=== PATIENT | male | born 1960 | race Caucasian/White ===

== ENCOUNTER 2022-01-03 15:17 | Inpatient (IN) | payer OTHER, SELFPAY ==
--- NOTE | ~2022-01-03 | XR_ITS ---
EXAMINATION: XR CHEST CLINICAL INFORMATION: Stroke COMPARISON: None TECHNIQUE: Frontal view of the chest was obtained. FINDINGS: Prominent right hilum of uncertain etiology. Mild opacity in the right mid to lower lung zone may represent an area of infiltrate. Left lung is clear. There is no failure or effusion here. The cardiac silhouette is within normal limits. XR/XR chest 1V IMPRESSION: Mild right basilar opacity and prominent right hilum. Etiology indeterminate. Area of infiltrate would need to be considered. Follow-up films are recommended. Consider PA and lateral films to further evaluate at this time. Otherwise short-term follow-up in 4-6 weeks PA and lateral films recommended
--- NOTE | ~2022-01-03 | CT_ITS ---
EXAMINATION: CT HEAD WITHOUT CONTRAST (STROKE PROTOCOL) CLINICAL INFORMATION: Stroke protocol. COMPARISON: None TECHNIQUE: Contiguous axial imaging was performed from the skull base to vertex without intravenous administration of contrast. This CT examination was performed using dose optimization techniques as appropriate, variously including the following: *Automated exposure control *Adjustment of mA and/or kV according to patient size (this includes techniques or standardized protocols for targeted exams where dose is matched to indication/reason for exam; i.e. extremities or head) *Use of iterative reconstruction technique DLP: 784 mGy-cm FINDINGS: No midline shift. There is no mass effect. There is no hemorrhage. There is atrophy here. Scattered areas of white matter ischemic change. Appears moderate. No extra-axial collection. Generous ventricles. View of the bone windows demonstrates sinus disease. CT/CT head for stroke IMPRESSION: No acute intracranial pathology. Moderate white matter ischemic changes. Atrophy. This critical result was discussed with Frankie Calderón at 3:50 PM hours on 01/03/2022. It was ascertained that the content and urgency of the report was understood at the time of direct communication.
--- NOTE | ~2022-01-03 | XR_ITS ---
EXAMINATION: XR CHEST CLINICAL INFORMATION: Question pneumonia COMPARISON: January 03, 2022 TECHNIQUE: 2 views of the chest were obtained. FINDINGS: No significant abnormality is noted involving the heart, lungs, mediastinum, bony thorax or soft tissues. XR/XR chest 2V IMPRESSION: No acute disease. Previously noted density was likely related to atelectasis with small lung volumes.
--- NOTE | 2022-01-03 15:25 | ECG_ITS ---
Test Reason : weakness Blood Pressure : / mmHG Vent. Rate : 089 BPM Atrial Rate : 089 BPM P-R Int : 148 ms QRS Dur : 082 ms QT Int : 408 ms P-R-T Axes : 077 014 033 degrees QTc Int : 496 ms Sinus rhythm with Premature atrial complexes Prolonged QT Abnormal ECG No previous ECGs available Referred By: Vesta David Electronically Signed By:Nathanael Pederson
[2022-01-03 15:30] LABS: Prothrombin Time Whole Bld POC 16.8 sec (11.1-13.5); ~PT, ~INR - Anti Coag Clinic 1.4 (0.9-1.1)
[2022-01-03 15:31] LABS: Glucose, Whole Blood 147 mg/dL (60-115)
--- NOTE | 2022-01-03 15:38 | ED_ITS ---
HPI - Neuro Symptoms/Deficit General Chief Complaint: Stroke Stated Complaint: STROKE ALERT,LKWT 1445, L SIDE DROOP/WEAK,+COVID Time Seen by Provider: 01/03/22 15:24 Source: EMS and RN notes reviewed Mode of arrival: EMS Limitations: physical limitation (Baseline dementia) History of Present Illness HPI Narrative: 61-year-old male came in from [facility] for evaluation of stroke. Patient with history of dementia his mental baseline is awake but disoriented had a history of CVA with aphasia, noticed by nursing staff patient with left hemiparesis and left facial weakness last was seen normal was 2:45 before arrival to the emergency department. On arrival patient is mute do not follow commands, unable to obtain history from the patient, can not perform neuro exam or NIH score on the patient. Past medical history is significant for hyperlipidemia, AFib on anticoagulation, CVA with aphasia. Patient recently diagnosed with COVID as per EMS patient found to be 89% at room air at the prison improved with 2 L of nasal cannula oxygen. Related Data Allergies Allergy/AdvReac Type Severity Reaction Status Date / Time No Known Allergies Allergy Verified 01/03/22 16:13 Review of Systems Review of Systems: Yes Unobtainable due to mental condition PMFSH Social History Social History Advance Directives: No Advance Directives Information Provided: No Physical Exam Vital Signs: Vital Signs: Last Vital Signs Pulse 98 01/03/22 15:43 Resp 22 H 01/03/22 15:43 BP 153/95 H 01/03/22 15:43 Pulse Ox 95 01/03/22 15:43 O2 Del Method 01/03/22 15:43 Oxygen Flow Rate 4 01/03/22 15:43 BMI result Body Mass Index 29.5 Appearance: Alert. Disoriented Head: Normal external exam. Normocephalic. Atraumatic. Eyes: PERRLA. EOMI. Conjunctiva and sclera normal. Eyelids normal. ENT: TM's Normal. Pharynx normal. Uvula midline. Moist mucous membranes. No trismus noted. No drooling noted. No muffled voice noted. Neck: Normal inspection. Neck supple. FROM. No adenopathy. Thyroid Normal. No meningeal signs. No neck mass noted. CVS: Normal heart rate and rhythm. Heart sound normal. No murmurs noted. Pulses normal throughout. Respiratory: No respiratory distress. Painless inspiration. Breath sounds normal. No wheezes/rales/rhonchi noted. Chest nontender. No accessory muscle usage noted or decreased air movement noted. Abdomen: Soft and nontender. Bowel sounds normal in all 4 quadrants. No distention noted. No organomegaly noted. No visible injury noted. Back: No CVA tenderness. Full range of motion noted. Skin: Skin warm and dry. Normal skin color. Normal skin turgor. No rashes/lesions/lacerations noted. Extremities: No lower extremity edema. Extremities exhibit normal range of motion. Extremities nontender. Neuro: Patient cannot follow commands. 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 Cavazos he also agree on the plan. Patient has fever and hypoxia recently diagnosed with COVID at the prison, clinical concern of aspiration pneumonia, patient was given Levaquin, sepsis workup in process. Case signed out to Dr. Hodge. MDM - Neuro Symptoms/Deficit Lab Data Result diagrams: 01/03/22 15:50 01/03/22 15:50 Labs: Lab Results 01/03/22 01/03/22 01/03/22 Range/Units 15:25 15:26 15:27 WBC (4.8-10.8) X10*3/uL RBC (4.60-5.80) X10*6/uL Hgb (14.0-18.0) g/dl Hct (42.0-52.0) % MCV (80.0-98.0) fL MCH (27.0-33.0) pg MCHC (31.0-36.0) g/dl RDW (11.0-16.0) % Plt Count (160-400) X10*3/uL MPV (9.4-12.4) fL Immature Gran % (Auto) (0.0-0.4) % Neut % (Auto) (45-73) % Lymph % (Auto) (20-40) % [place] % (Auto) (2-11) % Eos % (Auto) (0-4) % Baso % (Auto) (0-2) % Lymph # (Auto) (1.2-4.9) X10*3/uL [place] # (Auto) (0.1-1.2) X10*3/uL Eos # (Auto) (0.0-0.4) X10*3/uL Baso # (Auto) (0.0-0.2) X10*3/uL Abs Immat Gran (auto) (0.00-0.03) X10*3/uL Absolute Neuts (auto) (2.0-8.3) x10*3/uL Absolute Nucleated RBC (0.0-0.012) X10*3/uL Nucleated RBC % (auto) (0.0-0.2) /100WBC PT 17.1 H (10.0-13.1) SEC Whole Blood PT 16.8 H (11.1-13.5) sec INR 1.5 H (0.9-1.1) Whole Blood INR 1.4 H (0.9-1.1) APTT 26.9 (24.1-38.0) SEC POC Glucose 147 H (60-115) mg/dL 01/03/22 Range/Units 15:50 WBC 13.9 H (4.8-10.8) X10*3/uL RBC 5.94 H (4.60-5.80) X10*6/uL Hgb 18.1 H (14.0-18.0) g/dl Hct 54.4 H (42.0-52.0) % MCV 91.6 (80.0-98.0) fL MCH 30.5 (27.0-33.0) pg MCHC 33.3 (31.0-36.0) g/dl RDW 13.1 (11.0-16.0) % Plt Count 211 (160-400) X10*3/uL MPV 11.8 (9.4-12.4) fL Immature Gran % (Auto) 0.4 (0.0-0.4) % Neut % (Auto) 74.5 H (45-73) % Lymph % (Auto) 14.4 L (20-40) % [place] % (Auto) 10.3 (2-11) % Eos % (Auto) 0.0 (0-4) % Baso % (Auto) 0.4 (0-2) % Lymph # (Auto) 2.0 (1.2-4.9) X10*3/uL [place] # (Auto) 1.4 H (0.1-1.2) X10*3/uL Eos # (Auto) 0.0 (0.0-0.4) X10*3/uL Baso # (Auto) 0.1 (0.0-0.2) X10*3/uL Abs Immat Gran (auto) 0.05 H (0.00-0.03) X10*3/uL Absolute Neuts (auto) 10.3 H (2.0-8.3) x10*3/uL Absolute Nucleated RBC 0.000 (0.0-0.012) X10*3/uL Nucleated RBC % (auto) 0.0 (0.0-0.2) /100WBC PT (10.0-13.1) SEC Whole Blood PT (11.1-13.5) sec INR (0.9-1.1) Whole Blood INR (0.9-1.1) APTT (24.1-38.0) SEC POC Glucose (60-115) mg/dL Discharge Plan Discharge Clinical Impression: Cerebrovascular accident, COVID-19 virus infection, Pneumonia, Hypoxia Patient Disposition: Still a Patient
[2022-01-03 15:43] VITALS: BP 137/85; BP 153/95; PULSE 101; PULSE 98; RESP 22; O2SAT 90; O2SAT 95; BMI 29.5
[2022-01-03 15:56] LABS: MANUAL DIFF FLAG NO
[2022-01-03 15:58] LABS: Basophils Absolute Auto 0.1 X10*3/uL (0.0-0.2); Basophils Percent Auto 0.4 % (0-2); Hematocrit 54.4 % (42.0-52.0); Hemoglobin 18.1 g/dl (14.0-18.0); Imm Gran Abs Auto 0.05 X10*3/uL (0.00-0.03); Imm Gran Pct Auto 0.4 % (0.0-0.4); Lymphocytes Percent Auto 14.4 % (20-40); Mean Corpuscular HGB Conc 33.3 g/dl (31.0-36.0); Mean Corpuscular Hemoglobin 30.5 pg (27.0-33.0); Mean Corpuscular Volume 91.6 fL (80.0-98.0); Mean Platelet Volume 11.8 fL (9.4-12.4); Monocytes Absolute Auto 1.4 X10*3/uL (0.1-1.2); Monocytes Percent Auto 10.3 % (2-11); Neutrophils Absolute Auto 10.3 x10*3/uL (2.0-8.3); Neutrophils Percent Auto 74.5 % (45-73); Platelet Count 211 X10*3/uL (160-400); Red Blood Count 5.94 X10*6/uL (4.60-5.80); Red Cell Distribution Width 13.1 % (11.0-16.0); White Blood Count 13.9 X10*3/uL (4.8-10.8)
[2022-01-03] MEDS: 0.9 % Sodium Chloride 1,000 ML 999 ML IV (16:01)
[2022-01-03 16:08] LABS: INTERNATIONAL NORM RATIO 1.5 (0.9-1.1); Prothrombin Time 17.1 SEC (10.0-13.1)
[2022-01-03 16:11] LABS: Partial Thromboplastin Time 26.9 SEC (24.1-38.0)
[2022-01-03 16:13] LABS: Lactic Acid 1.1 mmol/L (0.5-2.0)
--- NOTE | 2022-01-03 16:15 | PC.NURSE ---
pt arousable to name, dementia at baseline, COVID +, febrile, lnw 1445, SNF reporting left sided facial droop/arm weakness, CT on arrival, 20 G L forearm, labs drawn, cultures drawn, thermal molder applied, ivf started.
[2022-01-03] MEDS: levoFLOXacin/D5W 750 MG/150 ML PIGGYBACK 100 MG IV (16:24)
[2022-01-03 16:32] LABS: Troponin-I High Sensitivity 179.1 ng/L (<3.5-35.0)
[2022-01-03 16:40] LABS: COVID-19 Test Positive (Negative); IDNOW Serial# 16C4AD1C
[2022-01-03 16:45] LABS: Stroke Lab Use COMPLETE
--- NOTE | 2022-01-03 16:57 | P.HPHOSP_ITS ---
History of Present Illness Date of Service: 01/03/22 Chief Complaint: left sided weakness and left facial droop 61 year year old male from [facility] with history of dementia type unknown, history of stroke with aphasia, AFIB on eliquis, HLD..He was brought from SNF to be evaluated for acute change in status notably left sided hemiparesis and left facial droop. In ED was not followin command and no meaningful could be obtained, when I saw him around 445 he was reportedly more alert and via translator interpreter was able to respond to to I am fine when asked how he's doing, he couldn't say his name or where he was or to offer any additional history. CT head no acute stroke, no tpa d/t antiocoaglation with eliquis. Of note he has been diagnosed with covid within a week and not on any specific treatment, his O2 sat was reported to be 89% and improved with oxygen. CXR show possible pneumonia, WBC is 13.9, troponin is 179, covid is positive Review of Systems 2 Review of Systems: Yes Unobtainable due to mental status [facility] Medical History (Updated 01/04/22 @ 12:00 by Geo Cavazos MD) Chronic a-fib Dementia History of stroke HLD (hyperlipidemia) Pertinent family history: Not available Social History Advance Directives: No Advance Directives Information Provided: No Meds Allergies Allergy/AdvReac Type Severity Reaction Status Date / Time No Known Allergies Allergy Verified 01/03/22 16:13 Active Medications: Current Medications Levofloxacin (Levaquin) 750 mg in 150 mls @ 100 mls/hr IV ONCE ONE Stop: 01/03/22 17:30 Last Admin: 01/03/22 16:24 Dose: 100 mls/hr Pharmacy Consult (Consult Rx Perform Med Rec) 1 each MISCELLANE ONCE PRN PRN Reason: Consult order Home Medications Medication Instructions Recorded Confirmed Last Taken Type allopurinol 100 mg tablet 100 mg PO DAILY 01/03/22 01/03/22 Unknown History amlodipine 10 mg tablet 10 mg PO DAILY 01/03/22 01/03/22 Unknown History apixaban 5 mg tablet (Eliquis) 5 mg PO BID 01/03/22 01/03/22 Unknown History atorvastatin 80 mg tablet 80 mg PO BEDTIME 01/03/22 01/03/22 Unknown History diclofenac sodium 1 % topical gel 4 g topical BID PRN Pain 01/03/22 01/03/22 Unknown History divalproex 125 mg tablet,delayed 625 mg PO BID 01/03/22 01/03/22 Unknown History release (Depakote) docusate sodium 100 mg capsule 100 mg PO BID PRN Constipation 01/03/22 01/03/22 Unknown History (Colace) fluoxetine 10 mg capsule 10 mg PO DAILY 01/03/22 01/03/22 Unknown History furosemide 40 mg tablet (Lasix) 40 mg PO DAILY 01/03/22 01/03/22 Unknown History iddoqtdssdx-[id number] C-Mn 500 1 cap PO DAILY 01/03/22 01/03/22 Unknown History mg-400 mg capsule (Glucosamine Chondroitin Maximum Strength) lisinopril 5 mg tablet 5 mg PO BEDTIME 01/03/22 01/03/22 Unknown History multivitamin 1 tab PO DAILY 01/03/22 01/03/22 Unknown History trazodone 50 mg tablet 12.5 mg PO BID 01/03/22 01/03/22 Unknown History Physical Exam Vital Signs and Narrative: Vital Signs: Last Vital Signs Pulse 98 01/03/22 15:43 Resp 22 H 01/03/22 15:43 BP 153/95 H 01/03/22 15:43 Pulse Ox 95 01/03/22 15:43 O2 Del Method 01/03/22 15:43 Oxygen Flow Rate 4 01/03/22 15:43 BMI result Body Mass Index 29.5 Const: Other: Constitutional: Alert, in no distress, mostly nonverbal Mental Status: unable to assess orientation Eyes: Pupils are equal, round and reactive to light. Ear, Nose and Throat: Oropharynx clear, mucous membranes moist. Ears and nose without Respiratory: Clear to auscultation. No wheezing, rales or rhonchi. Cardiovascular: S1 S2 regular. No murmurs, rubs or gallops. Gastrointestinal: Abdomen soft, non-tender, non-distended. Normal bowel sounds.? Neurologic:limitted as not able follow direction, no facial assymetry, able to hold up both arms against gravity Skin: No rashes or lesions.? Musculoskeletal: No cyanosis or clubbing. Psychiatric: flat Results Labs CBC and Chem 7: 01/03/22 15:50 01/04/22 06:00 Labs: Laboratory Results - last 24 hr 01/03/22 01/03/22 01/03/22 15:25 15:26 15:27 MCV MCH MCHC RDW Plt Count MPV Immature Gran % (Auto) Neut % (Auto) Lymph % (Auto) [place] % (Auto) Eos % (Auto) Baso % (Auto) Lymph # (Auto) [place] # (Auto) Eos # (Auto) Baso # (Auto) Abs Immat Gran (auto) Absolute Neuts (auto) Absolute Nucleated RBC Nucleated RBC % (auto) PT 17.1 H Whole Blood PT 16.8 H INR 1.5 H Whole Blood INR 1.4 H APTT 26.9 POC Glucose 147 H Lactic Acid Troponin I High Sens COVID-19 ([place]) COVID-[employer] Com 01/03/22 01/03/22 01/03/22 15:50 15:50 15:55 MCV 91.6 MCH 30.5 MCHC 33.3 RDW 13.1 Plt Count 211 MPV 11.8 Immature Gran % (Auto) 0.4 Neut % (Auto) 74.5 H Lymph % (Auto) 14.4 L [place] % (Auto) 10.3 Eos % (Auto) 0.0 Baso % (Auto) 0.4 Lymph # (Auto) 2.0 [place] # (Auto) 1.4 H Eos # (Auto) 0.0 Baso # (Auto) 0.1 Abs Immat Gran (auto) 0.05 H Absolute Neuts (auto) 10.3 H Absolute Nucleated RBC 0.000 Nucleated RBC % (auto) 0.0 PT Whole Blood PT INR Whole Blood INR APTT POC Glucose Lactic Acid 1.1 Troponin I High Sens 179.1 H* COVID-19 ([place]) COVID-19 [employer] Com 01/03/22 Unknown MCV MCH MCHC RDW Plt Count MPV Immature Gran % (Auto) Neut % (Auto) Lymph % (Auto) [place] % (Auto) Eos % (Auto) Baso % (Auto) Lymph # (Auto) [place] # (Auto) Eos # (Auto) Baso # (Auto) Abs Immat Gran (auto) Absolute Neuts (auto) Absolute Nucleated RBC Nucleated RBC % (auto) PT Whole Blood PT INR Whole Blood INR APTT POC Glucose Lactic Acid Troponin I High Sens COVID-19 ([place]) Positive A COVID-19 Clin Com See Note Imaging Radiologist's Impressions: Impressions Head CT 01/03/22 15:29 IMPRESSION: No acute intracranial pathology. Moderate white matter ischemic changes. Atrophy. This critical result was discussed with Frankie Calderón at 3:50 PM hours on 01/03/2022. It was ascertained that the content and urgency of the report was understood at the time of direct communication. Chest X-Ray 01/03/22 16:15 IMPRESSION: Mild right basilar opacity and prominent right hilum. Etiology indeterminate. Area of infiltrate would need to be considered. Follow-up films are recommended. Consider PA and lateral films to further evaluate at this time. Otherwise short-term follow-up in 4-6 weeks PA and lateral films recommended Assessment and Plan (1) COVID-19 virus infection: Status: Acute (2) Hypoxia: Status: Acute (3) Pneumonia: Status: Acute (4) Cerebrovascular accident: Status: Acute Plan 61 year year old male from [facility] with history of dementia, history of stroke with aphasia, AFIB on eliquis, HLD..He was brought from SNF to be evaluated for acute change in status notably left sided hemiparesis and left facial droop. +Covid with hypoxia, and covid pneumonia. #Left sided weaknes, facial weakness--possible stroke not yet manifested on CT -continue medical management with Eliquis, ASA, statin -PT/OT, speech to see hime #Covid + with hypoxia.. -O2 -Dexamethasone -Remdesevir if LFTs ok -Ceftriaxone for pneumonia #HypERnatremia--d/t dehydration lack of access to water -D5 and follow level #elevated troponin--likely from acute illness, no chest pa -Repeat level and if trending up cardiology consult #Polycythemia due to hemoconcentration -IVF #HLD-stain #HTN--BP med after med rec Quality Stroke Does the patient have a stroke diagnosis?: Yes Reason for No Anti-thrombotic by Day Two: N/A - Med Ordered VTE Prior VTE?: No VTE Risk Level:: Medical - low VTE Device Contraindication: Treatment Not Indicated VTE Drug Contraindication: N/A - Med Ordered
[2022-01-03 17:09] LABS: Anion Gap 12 (12-20); Blood Urea Nitrogen 29 mg/dL (9-16); Calcium 8.1 mg/dL (8.4-10.2); Carbon Dioxide 26 mmol/L (22-29); Chloride 117 mmol/L (96-108); Creatinine Clr Calc Pharmacy 69.9; Estimated Glomerular Filt Rate > 60; Glucose Random 127 mg/dL (60-115); Potassium 3.4 mmol/L (3.3-5.1); Sodium 152 mmol/L (135-145)
--- NOTE | 2022-01-03 17:35 | PC.NURSE ---
Addendum entered by Jonna Erwin 01/03/22 21:25: message sent to provider re 101.3 temp @ 1820 Original Note: EKG obtained, hospitalist in room w pt, pt appears more alert, endorses speaking norwegian only. buffer chrome in room w pt - pt denies pain, endorses hunger, following basic commands. attempted to place temp sensing marcos - unable to pass marcos. provider notified.
[2022-01-03 17:49] LABS: Alanine Aminotransferase 33 U/L (0-40); Albumin Level 3.6 g/dL (3.5-5.0); Alkaline Phosphatase 53 U/L (39-117); Aspartate Amino Transferase 32 U/L (5-37); Bilirubin Direct 0.5 mg/dL (0.0-0.5); Total Protein 6.8 g/dL (6.5-8.0)
[2022-01-03 18:00] VITALS: PULSE 90; RESP 16; TEMP 38.5; O2SAT 92
--- NOTE | 2022-01-03 18:02 | PHA.MEDREC ---
Pharmacy Consult ? Medication Reconciliation Pharmacy has completed the medication reconciliation. LIST FROM [facility]
[2022-01-03 19:22] LABS: Troponin-I High Sensitivity 211.5 ng/L (<3.5-35.0)
[2022-01-03 20:00] VITALS: BP 149/86; PULSE 85; RESP 18; TEMP 38.3; O2SAT 94
[2022-01-03] MEDS: dexAMETHasone sod phosphate 4 MG/ML VIAL 6 MG IVPUSH (21:11)
[2022-01-03] MEDS: Remdesivir 200 MG in 0.9 % Sodium Chloride 210 ML 105 MG IV (21:13)
--- NOTE | 2022-01-03 21:28 | PC.NURSE ---
pt medicated - late due to emergent pt in ED. vss - pt remains hypertensive, temp 100.9, provider notified.
--- NOTE | 2022-01-03 21:29 | PC.NURSE ---
pt incontinent of urine, pt cleaned.
[2022-01-03 21:52] VITALS: BP 149/86; PULSE 84; RESP 16; TEMP 36.9; O2SAT 96
[2022-01-03 23:35] LABS: Glucose, Whole Blood 137 mg/dL (60-115)
[2022-01-04] VITALS (9 sets, daily range): BP systolic 92–153; BP diastolic 49–92; PULSE 59–78; RESP 12–19; TEMP 36.4–37.7; O2SAT 94–98
[2022-01-04] MEDS: Dextrose 5 % 1,000 ML 125 ML IVCONT ×3 (02:37→18:16)
--- NOTE | 2022-01-04 02:39 | PC.NURSE ---
D5 started at 125ml/hr. pt sleeping, RR even and unlabored, O2 @ 95% on 2L via nasal cannula, vss.
[2022-01-04 06:48] LABS: Anion Gap 13 (12-20); Blood Urea Nitrogen 30 mg/dL (9-16); Calcium 8.7 mg/dL (8.4-10.2); Carbon Dioxide 27 mmol/L (22-29); Chloride 115 mmol/L (96-108); Cholesterol 115 mg/dL; Creatinine Clr Calc Pharmacy 79.8; Estimated Glomerular Filt Rate > 60; Glucose Random 197 mg/dL (60-115); HDL Cholesterol 22 mg/dL; LDL Cholesterol Calculated 76 mg/dl; Potassium 3.8 mmol/L (3.3-5.1); Sodium 151 mmol/L (135-145); Triglycerides 85 mg/dL
--- NOTE | 2022-01-04 08:57 | PC.NURSE ---
DR. GUILLORY AT BEDSIDE WITH TV HOST, PT AWARE OF PLAN CARE. PT HAD A EXTRA LARGE LOOSE/WATERY STOOL. PHYSICAL THERAPY AT BEDSIDE, PT AWARE OF PLAN OF CARE.
--- NOTE | 2022-01-04 09:00 | PC.NURSE ---
OCCUPATIONAL THERAPY AT BEDSIDE ALSO WITH PHYSICAL THERAPY, PT AWARE OF PLAN OF CARE
[2022-01-04 09:14] LABS: Glucose, Whole Blood 162 mg/dL (60-115)
[2022-01-04] MEDS: dexAMETHasone sod phosphate 4 MG/ML VIAL 6 MG IVPUSH (09:29)
[2022-01-04] MEDS: Insulin Lispro 100 UNIT/ML 3 ML VIAL SUBCUT ×3 (09:29→22:04)
--- NOTE | 2022-01-04 09:40 | PC.NURSE ---
pt is a/o, follows verbal commands. l side/arm weakness noted earlier with pt/ot. lungs sound - rul (cta) all other lobes slightly diminished. heart sounds regular, abd - soft and non-tender. bs + x 4 quads.
--- NOTE | 2022-01-04 10:00 | PC.NURSE ---
Dr. Vickie Willett . at bedside . patient aware of plan of care .
--- NOTE | 2022-01-04 11:57 | P.CNNE_ITS ---
History of Present Illness Data of Consult Service Date: 01/04/22 Primary Care Provider: Unknown Physician HPI Reason for consult: Change in mental status 61 years old man with underlying diagnosis of dementia and aphasia resident of a assisted brought to hospital with change in mental status. He was unable to provide any meaningful history. Apparently with change in mental status left- sided weakness was noted. There was no documentation or witnessing of any seizure-like episode. Initially he was febrile with possible lung infiltrate. Also his serum sodium was 151. Review of Systems Review of Systems: Review of system could not be done with [facility] Past Medical History Medical History (Updated 01/04/22 @ 12:00 by Geo Cavazos MD) Chronic a-fib Dementia History of stroke HLD (hyperlipidemia) Social History Social History Advance Directives: No Advance Directives Information Provided: No Meds Allergies Allergy/AdvReac Type Severity Reaction Status Date / Time No Known Allergies Allergy Verified 01/03/22 16:13 Active Medications: Current Medications Acetaminophen (Acetaminophen Supp 650 Mg Supp.Rect) 650 mg FL Q6H PRN PRN Reason: Pain, Mild (Pain Scale 1-3) Acetaminophen (Acetaminophen 325 Mg Tablet) 650 mg PO Q6H PRN PRN Reason: Pain, Mild (Pain Scale 1-3) Atorvastatin Calcium (Atorvastatin Calcium 80 Mg Tablet) 80 mg PO DAILY [facility] Last Admin: 01/04/22 09:30 Dose: Not Given Dexamethasone Sodium Phosphate (Dexamethasone Sod Phosphate 4 Mg/Ml Vial) 6 mg IVPUSH DAILY [facility] Last Admin: 01/04/22 09:29 Dose: 6 mg Dextrose (D5w) 1,000 mls @ 125 mls/hr IVCONT .Q8H [facility] Last Admin: 01/04/22 11:04 Dose: 125 mls/hr Remdesivir 100 mg/ Sodium (Chloride) 230 mls @ 115 mls/hr IV Q24H [facility] Stop: 01/07/22 21:59 Insulin Human Lispro (Insulin Lispro 100 Unit/Ml 3 Ml Vial) 0 unit SUBCUT QIDACHS [facility]; Protocol Last Admin: 01/04/22 09:29 Dose: 2 unit Melatonin (Melatonin 3 Mg Tablet) 3 mg PO BEDTIME PRN PRN Reason: Insomnia Ondansetron HCl (Ondansetron Hcl 4 Mg/2 Ml Vial) 4 mg IVPUSH Q8H PRN PRN Reason: Nausea and Vomiting Pharmacy Consult (Consult Rx Perform Med Rec) 1 each MISCELLANE ONCE PRN PRN Reason: Consult order Home Medications Medication Instructions Recorded Confirmed Last Taken Type allopurinol 100 mg tablet 100 mg PO DAILY 01/03/22 01/03/22 Unknown History amlodipine 10 mg tablet 10 mg PO DAILY 01/03/22 01/03/22 Unknown History apixaban 5 mg tablet (Eliquis) 5 mg PO BID 01/03/22 01/03/22 Unknown History atorvastatin 80 mg tablet 80 mg PO BEDTIME 01/03/22 01/03/22 Unknown History diclofenac sodium 1 % topical gel 4 g topical BID PRN Pain 01/03/22 01/03/22 Unknown History divalproex 125 mg tablet,delayed 625 mg PO BID 01/03/22 01/03/22 Unknown History release (Depakote) docusate sodium 100 mg capsule 100 mg PO BID PRN Constipation 01/03/22 01/03/22 Unknown History (Colace) fluoxetine 10 mg capsule 10 mg PO DAILY 01/03/22 01/03/22 Unknown History furosemide 40 mg tablet (Lasix) 40 mg PO DAILY 01/03/22 01/03/22 Unknown History itbliuxazkc-lttdyphzg-mjc C-Mn 500 1 cap PO DAILY 01/03/22 01/03/22 Unknown History mg-400 mg capsule (Glucosamine Chondroitin Maximum Strength) lisinopril 5 mg tablet 5 mg PO BEDTIME 01/03/22 01/03/22 Unknown History multivitamin 1 tab PO DAILY 01/03/22 01/03/22 Unknown History trazodone 50 mg tablet 12.5 mg PO BID 01/03/22 01/03/22 Unknown History Physical Exam Vital Signs: Vital Signs: Last Vital Signs Temp 98.3 F 01/04/22 11:07 Pulse 70 01/04/22 11:07 Resp 16 01/04/22 11:07 BP 147/75 H 01/04/22 11:07 Pulse Ox 98 01/04/22 11:07 O2 Del Method 01/04/22 11:07 O2 Flow Rate 2 01/04/22 11:07 Oxygen Flow Rate 4 01/03/22 15:43 BMI result Body Mass Index 29.5 Neuro: Other: Alert and awake with decreased spontaneity and fluency of speech. Sometime he understood the command but in onset to multiple questions he kept on stating the same to words. Many times he would keep on repeating whatever I stated. Face was symmetrical. Visual shipley seem to be full to threat. Elementary neurological examination was difficult to determine but he was able to do [id number] testing. Plantars were withdrawing. Results Labs CBC & Chem 7: 01/03/22 15:50 01/04/22 06:00 Labs: Short CBC 01/03/22 Range/Units 15:50 WBC 13.9 H (4.8-10.8) X10*3/uL Hgb 18.1 H (14.0-18.0) g/dl Hct 54.4 H (42.0-52.0) % Plt Count 211 (160-400) X10*3/uL BMP 01/03/22 01/04/22 16:37 06:00 Sodium 152 H 151 H Potassium 3.4 3.8 Chloride 117 H 115 H Carbon Dioxide 26 27 BUN 29 H 30 H Creatinine 1.21 1.06 Calcium 8.1 L 8.7 D Cardiac Enzymes 01/03/22 Range/Units 16:37 Total Creatine Kinase 292 H (38-174) U/L Liver Function 01/03/22 Range/Units 16:37 Total Bilirubin 1.0 (0.0-1.0) mg/dL Direct Bilirubin 0.5 (0.0-0.5) mg/dL AST 32 (5-37) U/L ALT 33 (0-40) U/L Alkaline Phosphatase 53 (39-117) U/L Albumin 3.6 (3.5-5.0) g/dL His noncontrast head CT revealed moderately severe diffuse cerebral and cerebellar central and cortical atrophy and moderately severe chronic micro vascular ischemic changes. Assessment and Plan (1) Encephalopathy: Status: Acute 61 years old man with underlying diagnosis of dementia and aphasia from stroke or dementia presented with change in mental status. He was unable to provide any meaningful history. On examination he has mixed aphasia limiting examination. His serum sodium was 151, chest x-ray was suspicious of infection, temperature initially was somewhat elevated and white cell count was high. He was COVID positive. At this time his overall impression is suggestive of COVID and hypernatremia related encephalopathy. Appropriate treatment and hydration is recommended. As far as stroke treatment is concerned, he already has signifi cant aphasia and I would recommend conservative approach of treatment. Procedures Date of Service Date of Service: 01/04/22
[2022-01-04 12:10] LABS: Glucose, Whole Blood 159 mg/dL (60-115)
--- NOTE | 2022-01-04 13:40 | MHC.SL.SWA ---
Speech Pathologist Impression: Oral phase dysphagia Risk of Aspiration Due to: Neurological Condition History of Pneumonia Reduced Cognition Dysphasia Diet Status: Upgrade Liquid Consistency and Strategies for Safe Swallow: Liquid Intake Recommendation: Thin Liquid Intake Strategies: Small Sips Solid Food Consistency: Dietary Recommendations: Chopped/Advanced (NDD3) Additional Modifications to Solid Foods: Recommend upgrade from NPO to CHOPPED/ADVANCED (NDD3) diet with THIN liquids, pills WHOLE in PUREE. Total supervision during meals to ensure aspiration precautions, provide assistance with feeding and set up as needed throughout meals d/t left side weakness. Patient would benefit from an evaluation of his speech-language skills during his inpatient stay or at the next level of care. SPRING UP SUPERVISOR updated MD, RN, RD via [employer]. SPRING UP SUPERVISOR will continue to follow. Oral Medication Intake: Whole with Puree Please contact the pharmacy regarding appropriate crushable or liquid drug formulations that are available whenever modified delivery is recommended. Compensatory Strategies and Precautions to be Taken for Safe Swallow: Sitting Upright (90 deg) Small Bites and Sips Alternate Liquids/Solids Rate of Ingestion Change Supervision While Eating and Drinking for Safe Swallow: Total Assistance (1:1) Swallowing Recommended Treatments: Compens. Strategy Educat. Recommendation for Speech: Inpatient Speech Therapy Speech Therapy through Rehab Facility Sales Marketing Director Clinican/Clinical Fellow: No Supervisory Statement: I have reviewed and agree with the student/clinical fellow's documentation: N/A Speech Language Pathologist: Lakesha Hartman M.A., [facility]SPRING UP SUPERVISOR
--- NOTE | 2022-01-04 14:03 | PC.NURSE ---
pt is a/o x 2 pt did not know the yr.
--- NOTE | 2022-01-04 14:41 | HO.PM.IMPN ---
Subjective Subjective Date of Service: 01/05/22 Interval History: Seen in f/u for stroke left sided weakness, confusion, Hypernatremia Interval history: Diarrhea, no hypoxia, more alert Review of Systems no fever diarrhea Physical Exam Vital Signs: Vital Signs: Last Vital Signs Temp 98.5 F 01/04/22 13:59 Pulse 69 01/04/22 13:59 Resp 19 01/04/22 13:59 BP 153/79 H 01/04/22 13:59 Pulse Ox 98 01/04/22 13:59 O2 Del Method 01/04/22 13:59 O2 Flow Rate 2 01/04/22 11:07 Oxygen Flow Rate 4 01/03/22 15:43 BMI result Body Mass Index 29.5 Const: Other: Constitutional: alert, oriented to self, no diste Respiratory: Clear to auscultation. No wheezing, rales or rhonchi. Cardiovascular: S1 S2 regular. No murmurs, rubs or gallops. Gastrointestinal: Abdomen soft, non-tender, non-distended. Normal bowel sounds.? Neurologic:seem to be moving extremities better Skin: No rashes or lesions.? Musculoskeletal: No cyanosis or clubbing. Psychiatric: flat Objective Data Active Medications Acetaminophen (Acetaminophen Supp 650 Mg Supp.Rect) 650 mg [place] Q6H PRN PRN Reason: Pain, Mild (Pain Scale 1-3) Acetaminophen (Acetaminophen 325 Mg Tablet) 650 mg PO Q6H PRN PRN Reason: Pain, Mild (Pain Scale 1-3) Atorvastatin Calcium (Atorvastatin Calcium 80 Mg Tablet) 80 mg PO DAILY [facility] Last Admin: 01/04/22 09:30 Dose: Not Given Documented By: JOVANA Non-Admin Reason: NPO Dexamethasone Sodium Phosphate (Dexamethasone Sod Phosphate 4 Mg/Ml Vial) 6 mg IVPUSH DAILY [facility] Last Admin: 01/04/22 09:29 Dose: 6 mg Documented By: JOVANA Dextrose (D5w) 1,000 mls @ 125 mls/hr IVCONT .Q8H [facility] Last Admin: 01/04/22 11:04 Dose: 125 mls/hr Documented By: MICHEL Remdesivir 100 mg/ Sodium (Chloride) 230 mls @ 115 mls/hr IV Q24H [facility] Stop: 01/07/22 21:59 Insulin Human Lispro (Insulin Lispro 100 Unit/Ml 3 Ml Vial) [facility]; Protocol Last Admin: 01/04/22 14:04 Dose: 2 unit Documented By: SCOC Melatonin (Melatonin 3 Mg Tablet) 3 mg PO BEDTIME PRN PRN Reason: Insomnia Ondansetron HCl (Ondansetron Hcl 4 Mg/2 Ml Vial) 4 mg IVPUSH Q8H PRN PRN Reason: Nausea and Vomiting Pharmacy Consult (Consult Rx Perform Med Rec) 1 each MISCELLANE ONCE PRN PRN Reason: Consult order Labs CBC & Chem 7: 01/03/22 15:50 01/04/22 06:00 Labs: Laboratory Results - last 24 hr 01/03/22 01/03/22 01/03/22 15:25 15:26 15:27 MCV MCH MCHC RDW Plt Count MPV Immature Gran % (Auto) Neut % (Auto) Lymph % (Auto) [place] % (Auto) Eos % (Auto) Baso % (Auto) Lymph # (Auto) [place] # (Auto) Eos # (Auto) Baso # (Auto) Abs Immat Gran (auto) Absolute Neuts (auto) Absolute Nucleated RBC Nucleated RBC % (auto) PT 17.1 H Whole Blood PT 16.8 H INR 1.5 H Whole Blood INR 1.4 H APTT 26.9 Anion Gap Estim Creat Clear Calc Estimated GFR POC Glucose 147 H Random Glucose Lactic Acid Calcium Total Bilirubin Direct Bilirubin AST ALT Alkaline Phosphatase Total Creatine Kinase Troponin I High Sens Total Protein Albumin Triglycerides Cholesterol LDL Cholesterol, Calc HDL Cholesterol COVID-19 ([place]) COVID-19 Clin Com 01/03/22 01/03/22 01/03/22 15:50 15:50 15:55 MCV 91.6 MCH 30.5 MCHC 33.3 RDW 13.1 Plt Count 211 MPV 11.8 Immature Gran % (Auto) 0.4 Neut % (Auto) 74.5 H Lymph % (Auto) 14.4 L [place] % (Auto) 10.3 Eos % (Auto) 0.0 Baso % (Auto) 0.4 Lymph # (Auto) 2.0 [place] # (Auto) 1.4 H Eos # (Auto) 0.0 Baso # (Auto) 0.1 Abs Immat Gran (auto) 0.05 H Absolute Neuts (auto) 10.3 H Absolute Nucleated RBC 0.000 Nucleated RBC % (auto) 0.0 PT Whole Blood PT INR Whole Blood INR APTT Anion Gap Estim Creat Clear Calc Estimated GFR POC Glucose Random Glucose Lactic Acid 1.1 Calcium Total Bilirubin Direct Bilirubin AST ALT Alkaline Phosphatase Total Creatine Kinase Troponin I High Sens 179.1 H* Total Protein Albumin Triglycerides Cholesterol LDL Cholesterol, Calc HDL Cholesterol COVID-19 ([place]) COVID-19 [place] Com 01/03/22 01/03/22 01/03/22 16:37 18:36 22:57 MCV MCH MCHC RDW Plt Count MPV Immature Gran % (Auto) Neut % (Auto) Lymph % (Auto) [place] % (Auto) Eos % (Auto) Baso % (Auto) Lymph # (Auto) [place] # (Auto) Eos # (Auto) Baso # (Auto) Abs Immat Gran (auto) Absolute Neuts (auto) Absolute Nucleated RBC Nucleated RBC % (auto) PT Whole Blood PT INR Whole Blood INR APTT Anion Gap 12 Estim Creat Clear Calc 69.9 Estimated GFR > 60 POC Glucose Random Glucose 127 H Lactic Acid 1.0 Calcium 8.1 L Total Bilirubin 1.0 Direct Bilirubin 0.5 AST 32 ALT 33 Alkaline Phosphatase 53 Total Creatine Kinase 292 H Troponin I High Sens 211.5 H* Total Protein 6.8 Albumin 3.6 Triglycerides Cholesterol LDL Cholesterol, Calc HDL Cholesterol COVID-19 ([place]) COVID-19 [email or web address] 01/03/22 01/03/22 01/04/22 23:26 Unknown 06:00 MCV MCH MCHC RDW Plt Count MPV Immature Gran % (Auto) Neut % (Auto) Lymph % (Auto) [place] % (Auto) Eos % (Auto) Baso % (Auto) Lymph # (Auto) [place] # (Auto) Eos # (Auto) Baso # (Auto) Abs Immat Gran (auto) Absolute Neuts (auto) Absolute Nucleated RBC Nucleated RBC % (auto) PT Whole Blood PT INR Whole Blood INR APTT Anion Gap 13 Estim Creat Clear Calc 79.8 Estimated GFR > 60 POC Glucose 137 H Random Glucose 197 H D Lactic Acid Calcium 8.7 D Total Bilirubin Direct Bilirubin AST ALT Alkaline Phosphatase Total Creatine Kinase Troponin I High Sens Total Protein Albumin Triglycerides Cholesterol LDL Cholesterol, Calc HDL Cholesterol COVID-19 ([place]) Positive A COVID-19 [place] Com See Note 01/04/22 01/04/22 01/04/22 06:00 09:05 12:06 MCV MCH MCHC RDW Plt Count MPV Immature Gran % (Auto) Neut % (Auto) Lymph % (Auto) [place] % (Auto) Eos % (Auto) Baso % (Auto) Lymph # (Auto) [place] # (Auto) Eos # (Auto) Baso # (Auto) Abs Immat Gran (auto) Absolute Neuts (auto) Absolute Nucleated RBC Nucleated RBC % (auto) PT Whole Blood PT INR Whole Blood INR APTT Anion Gap Estim Creat Clear Calc Estimated GFR POC Glucose 162 H 159 H Random Glucose Lactic Acid Calcium Total Bilirubin Direct Bilirubin AST ALT Alkaline Phosphatase Total Creatine Kinase Troponin I High Sens Total Protein Albumin Triglycerides 85 Cholesterol 115 LDL Cholesterol, Calc 76 HDL Cholesterol 22 COVID-19 ([place]) COVID-19 Clin Com Assessment and Plan (1) Hypernatremia: Status: Acute (2) Encephalopathy: Status: Acute (3) COVID-19 virus infection: Status: Acute Plan 61 year year old male from [facility] with history of dementia, history of stroke with aphasia, AFIB on eliquis, HLD..He was brought from SNF to be evaluated for acute change in status notably left sided hemiparesis and left facial droop.? +Covid with hypoxia, and covid pneumonia. #Left sided weaknes, facial weakness-- possible stroke vs effect of high sodium/encephalopathy, overall better. continue treating underlying hi sodium for likely encephalopathy #Covid + with hypoxia only one episode of in Ed but qualified for steroid, remdesevir -O2 -Dexamethasone, remdesevir #Dirrhea--likely from covid, check c dif--IVF #HypERnatremia--d/t dehydration lack of access to water -D5 and follow level, repeat labs today, Nephro consult #elevated troponin--likely from acute illness, no chest pa -Repeat level came down #Polycythemia due to hemoconcentration - and repeat level #HLD-stain #HTN--BP med after med rec Quality Stroke Does the patient have a stroke diagnosis?: Yes Reason for No Anti-thrombotic by Day Two: N/A - Med Ordered VTE Prior VTE?: No VTE Risk Level:: Medical - low VTE Device Contraindication: Treatment Not Indicated VTE Drug Contraindication: N/A - Med Ordered
--- NOTE | 2022-01-04 14:47 | PC.NURSE ---
Dr. Rodríguez from [facility] at bedside for consult . patient aware of plan of care .
[2022-01-04 15:22] LABS: CDiff Gene PCR NEGATIVE (Negative)
[2022-01-04 16:49] LABS: Troponin-I High Sensitivity 83.3 ng/L (<3.5-35.0)
[2022-01-04 18:11] LABS: Glucose, Whole Blood 150 mg/dL (60-115)
--- NOTE | 2022-01-04 19:17 | PC.NURSE ---
assumed care of pt at 191
--- NOTE | 2022-01-04 20:02 | P.CONNP_ITS ---
History of Present Illness Reason for Consult Consult date: 01/04/22 Reason for consult: Hypernatremia Chief Complaint Chief complaint: Stroke History of Present Illness Narrative: 61 year year old male from [facility] with history of dementia type unknown, history of stroke with aphasia, AFIB on eliquis, HLD who was brought from SNF to be evaluated for acute change in status notably left sided hemiparesis and left facial droop. In ED, was not following command and no meaningful could be obtained. CXR show possible pneumonia, WBC is 13.9, troponin is 179, covid is positive. Nephrology consulted for hypernatremia which is suspected to be secondary to lack of access to water and poor mentation to request FW when needed. Na = 151 today with patietn tolerating D5W infusion and no evidence of hypervolemia. ROS otherwise negative. Review of Systems Constitutional: Reports as per HPI [facility] Past Medical History Medical History (Updated 01/04/22 @ 20:03 by Chris Hurd MD) Chronic a-fib Dementia History of stroke HLD (hyperlipidemia) Social History Social History Advance Directives: No Advance Directives Information Provided: No Meds Allergies Allergy/AdvReac Type Severity Reaction Status Date / Time No Known Allergies Allergy Verified 01/03/22 16:13 Active Medications: Current Medications Acetaminophen (Acetaminophen Supp 650 Mg Supp.Rect) 650 mg [place] Q6H PRN PRN Reason: Pain, Mild (Pain Scale 1-3) Acetaminophen (Acetaminophen 325 Mg Tablet) 650 mg PO Q6H PRN PRN Reason: Pain, Mild (Pain Scale 1-3) Atorvastatin Calcium (Atorvastatin Calcium 80 Mg Tablet) 80 mg PO DAILY [facility] Last Admin: 01/04/22 09:30 Dose: Not Given Dexamethasone Sodium Phosphate (Dexamethasone Sod Phosphate 4 Mg/Ml Vial) 6 mg IVPUSH DAILY [facility] Last Admin: 01/04/22 09:29 Dose: 6 mg Dextrose (D5w) 1,000 mls @ 125 mls/hr IVCONT .Q8H [facility] Last Admin: 01/04/22 18:16 Dose: 125 mls/hr Remdesivir 100 mg/ Sodium (Chloride) 230 mls @ 115 mls/hr IV Q24H [facility] Stop: 01/07/22 21:59 Insulin Human Lispro (Insulin Lispro 100 Unit/Ml 3 Ml Vial) 0 unit SUBCUT [facility]; Protocol Last Admin: 01/04/22 18:09 Dose: Not Given Melatonin (Melatonin 3 Mg Tablet) 3 mg PO BEDTIME PRN PRN Reason: Insomnia Ondansetron HCl (Ondansetron Hcl 4 Mg/2 Ml Vial) 4 mg IVPUSH Q8H PRN PRN Reason: Nausea and Vomiting Pharmacy Consult (Consult Rx Perform Med Rec) 1 each MISCELLANE ONCE PRN PRN Reason: Consult order Home Medications Medication Instructions Recorded Confirmed Last Taken Type allopurinol 100 mg tablet 100 mg PO DAILY 01/03/22 01/03/22 Unknown History amlodipine 10 mg tablet 10 mg PO DAILY 01/03/22 01/03/22 Unknown History apixaban 5 mg tablet (Eliquis) 5 mg PO BID 01/03/22 01/03/22 Unknown History atorvastatin 80 mg tablet 80 mg PO BEDTIME 01/03/22 01/03/22 Unknown History diclofenac sodium 1 % topical gel 4 g topical BID PRN Pain 01/03/22 01/03/22 Unknown History divalproex 125 mg tablet,delayed 625 mg PO BID 01/03/22 01/03/22 Unknown History release (Depakote) docusate sodium 100 mg capsule 100 mg PO BID PRN Constipation 01/03/22 01/03/22 Unknown History (Colace) fluoxetine 10 mg capsule 10 mg PO DAILY 01/03/22 01/03/22 Unknown History furosemide 40 mg tablet (Lasix) 40 mg PO DAILY 01/03/22 01/03/22 Unknown History gzcyhoeiqzg-ngwzotbxe-oqg C-Mn 500 1 cap PO DAILY 01/03/22 01/03/22 Unknown History mg-400 mg capsule (Glucosamine Chondroitin Maximum Strength) lisinopril 5 mg tablet 5 mg PO BEDTIME 01/03/22 01/03/22 Unknown History multivitamin 1 tab PO DAILY 01/03/22 01/03/22 Unknown History trazodone 50 mg tablet 12.5 mg PO BID 01/03/22 01/03/22 Unknown History Physical Exam Vital Signs: Last Vital Signs Temp 98.5 F 01/04/22 13:59 Pulse 65 01/04/22 17:46 Resp 12 01/04/22 17:46 BP 130/72 01/04/22 17:46 Pulse Ox 94 01/04/22 17:46 O2 Del Method 01/04/22 17:46 O2 Flow Rate 2 01/04/22 17:46 Oxygen Flow Rate 4 01/03/22 15:43 BMI result Body Mass Index 29.5 Const General: cooperative HEENT Head: Yes normocephalic and Yes atraumatic Neck Neck: Yes no JVD Resp Auscultation: clear to auscultation bilaterally Cardio Jugular venous distension: no JVD Rate: regular rate Rhythm: regular rhythm GI Auscultation: normal bowel sounds Neuro General: moves all extremities Extrem General: Yes no clubbing, cyanosis or edema Results Lab Results Result Diagrams: 01/03/22 15:50 01/04/22 06:00 Lab results: Chemistry 01/03/22 01/04/22 16:37 06:00 Sodium 152 H 151 H Potassium 3.4 3.8 Carbon Dioxide 26 27 BUN 29 H 30 H Creatinine 1.21 1.06 Calcium 8.1 L 8.7 D Hematology 01/03/22 15:50 WBC 13.9 H Hgb 18.1 H Plt Count 211 Assessment and Plan (1) Hypernatremia: Status: Acute Plan 61 year year old male from [facility] with history of dementia, history of stroke with aphasia, AFIB on eliquis, HLD..He was brought from SNF to be evaluated for acute change in status notably left sided hemiparesis and left facial droop. +Covid with hypoxia, and covid pneumonia. Problem: #Hypernatremia--d/t dehydration lack of access to water - Continue D5W. Reassess once Na improved to 140 and po intake tolerating. - Remains to have ~ 4.3 Liter FWD. - isotonic saline for IV gtts will prolong recovery. - See if pharmacy can convert to D5W suspension for any needed gtt.s Procedures Date of Service Date of Service: 01/04/22
[2022-01-04 21:56] LABS: Glucose, Whole Blood 153 mg/dL (60-115)
[2022-01-04] MEDS: Remdesivir 100 MG in 0.9 % Sodium Chloride 230 ML 115 MG IV (22:05)
--- NOTE | 2022-01-04 22:08 | PC.NURSE ---
administered meds per MAR
[2022-01-05 02:51] VITALS: BP 140/75; PULSE 50; RESP 13; TEMP 36.4; O2SAT 98
[2022-01-05] MEDS: Dextrose 5 % 1,000 ML 125 ML IVCONT (04:37)
--- NOTE | 2022-01-05 04:42 | PC.NURSE ---
started 5% dextrose 1000mL due to not being in stock room; notified cell operation supervisor and cell operation supervisor was able to get one for pt
[2022-01-05 06:37] VITALS: BP 127/71; PULSE 56; RESP 12; TEMP 36.1; O2SAT 97
[2022-01-05 07:06] LABS: Glucose, Whole Blood 132 mg/dL (60-115)
[2022-01-05 09:33] VITALS: BP 127/71; PULSE 56; O2SAT 97
[2022-01-05] MEDS: Atorvastatin Calcium 80 MG TABLET PO (10:46)
[2022-01-05] MEDS: dexAMETHasone sod phosphate 4 MG/ML VIAL 6 MG IVPUSH (10:46)
--- NOTE | 2022-01-05 11:57 | HO.PM.IMPN ---
Subjective Subjective Date of Service: 01/05/22 Interval History: Seen in f/u for stroke left sided weakness, confusion, Hypernatremia Interval history: improved Diarrhea, no hypoxia, more alert Review of Systems no fever no diarrhea Physical Exam Vital Signs: Vital Signs: Last Vital Signs Temp 96.9 F 01/05/22 06:37 Pulse 56 01/05/22 09:33 Resp 12 01/05/22 06:37 BP 127/71 01/05/22 09:33 Pulse Ox 97 01/05/22 09:33 O2 Del Method 01/05/22 06:37 O2 Flow Rate 2 01/05/22 06:37 Oxygen Flow Rate 4 01/03/22 15:43 BMI result Body Mass Index 29.5 Const: Other: Constitutional: alert, oriented to self, no diste Respiratory: Clear to auscultation. No wheezing, rales or rhonchi. Cardiovascular: S1 S2 regular. No murmurs, rubs or gallops. Gastrointestinal: Abdomen soft, non-tender, non-distended. Normal bowel sounds.? Neurologic:seem to be moving extremities better Skin: No rashes or lesions.? Musculoskeletal: No cyanosis or clubbing. Psychiatric: flat Objective Data Active Medications Acetaminophen (Acetaminophen Supp 650 Mg Supp.Rect) 650 mg [place] Q6H PRN PRN Reason: Pain, Mild (Pain Scale 1-3) Acetaminophen (Acetaminophen 325 Mg Tablet) 650 mg PO Q6H PRN PRN Reason: Pain, Mild (Pain Scale 1-3) Atorvastatin Calcium (Atorvastatin Calcium 80 Mg Tablet) 80 mg PO DAILY [facility] Last Admin: 01/05/22 10:46 Dose: 80 mg Documented By: ALPHONSO Dexamethasone Sodium Phosphate (Dexamethasone Sod Phosphate 4 Mg/Ml Vial) 6 mg IVPUSH DAILY [facility] Last Admin: 01/05/22 10:46 Dose: 6 mg Documented By: ALPHONSO Dextrose (D5w) 1,000 mls @ 125 mls/hr IVCONT .Q8H [facility] Last Admin: 01/05/22 10:47 Dose: Not Given Documented By: ALPHONSO Non-Admin Reason: See Note Remdesivir 100 mg/ Sodium (Chloride) 230 mls @ 115 mls/hr IV Q24H [facility] Stop: 01/07/22 21:59 Last Infusion: 01/05/22 00:05 Dose: 0 mls/hr Documented By: CHARLIE Insulin Human Lispro (Insulin Lispro 100 Unit/Ml 3 Ml Vial) 0 unit [facility]; Protocol Last Admin: 01/05/22 07:04 Dose: Not Given Documented By: ALPHONSO Non-Admin Reason: No Insulin Coverage Melatonin (Melatonin 3 Mg Tablet) 3 mg PO BEDTIME PRN PRN Reason: Insomnia Ondansetron HCl (Ondansetron Hcl 4 Mg/2 Ml Vial) 4 mg IVPUSH Q8H PRN PRN Reason: Nausea and Vomiting Pharmacy Consult (Consult Rx Perform Med Rec) 1 each MISCELLANE ONCE PRN PRN Reason: Consult order Labs CBC & Chem 7: 01/03/22 15:50 01/04/22 06:00 Labs: Laboratory Results - last 24 hr 01/04/22 01/04/22 01/04/22 12:06 14:23 16:24 POC Glucose 159 H Troponin I High Sens 83.3 H D C. difficile Tox B Gene NEGATIVE 01/04/22 01/04/22 01/05/22 18:06 21:51 07:03 POC Glucose 150 H 153 H 132 H Troponin I High Sens C. difficile Tox B Gene Microbiology Microbiology Results: Microbiology 01/03/22 15:50 Blood Culture - Final Blood - Venous Coag negative Staphylococcus 01/03/22 18:36 Blood Culture - Preliminary Blood - Venous No growth after 24 hours. 01/03/22 18:36 Blood Culture - Preliminary Blood - Venous No growth after 24 hours. 01/03/22 15:55 Blood Culture - Preliminary Blood - Venous No growth after 24 hours. Assessment and Plan (1) Hypernatremia: Status: Acute (2) Encephalopathy: Status: Acute (3) COVID-19 virus infection: Status: Acute Plan 61 year year old male from [facility] with history of dementia, history of stroke with aphasia, AFIB on eliquis, HLD..He was brought from SNF to be evaluated for acute change in status notably left sided hemiparesis and left facial droop.? +Covid with hypoxia, and covid pneumonia. #Left sided weaknes, facial weakness-- evaluated by neuro and think more likely encephalopathy, seems more alert, and clear, #Covid + with hypoxia only one episode of in Ed but qualified for steroid, -O2 PRN -Dexamethasone, remdesevir--D3 #Dirrhea--likely from covid, negative c dif--IVF #HypERnatremia--d/t dehydration lack of access to water -D5 and follow level, repeat labs today, Nephro following #elevated troponin--likely from acute illness, no chest pa -Repeat level came down #Polycythemia due to hemoconcentration - and repeat level #HLD-stain #HTN--BP med after med rec Need for inpatient: encephalopathy, Covid requiring IV remedesevir, Hypernatremia getting IVF Quality Stroke Does the patient have a stroke diagnosis?: Yes Reason for No Anti-thrombotic by Day Two: N/A - Med Ordered VTE Prior VTE?: No VTE Risk Level:: Medical - low VTE Device Contraindication: Treatment Not Indicated VTE Drug Contraindication: N/A - Med Ordered
--- NOTE | 2022-01-05 12:38 | P.CDIC_ITS ---
CDI Concurrent Query Documentation Clarification: PHYSICIAN'S DOCUMENTATION REQUEST Date of Query: 01/05/22 1238 Patient Name: Serafin Miller Admit Date: 01/03/22 Dear Doctor, A review of the medical record indicates additional documentation may be needed. Please review below and update the documentation accordingly. Clinical Indicators: Risk Factors/Clinical Indicators/Treatments PN: 01/03 - Asssessment/plan: encephalopathy Continue treating hi sodium for likely encephalopathy. Hypernatremia, dehydration lack of access to water, disoriented. Based on the above, please further specify, in the Progress Notes, the known or suspected type of the documented encephalopathy: * Metabolic * Toxic * Toxic metabolic * Other if known * Unable to determine Use of terms such as suspected, likely, concern for, or probable (associated with a specific diagnosis that is being evaluated, monitored, or treated as if it exists) are acceptable and can be coded in the inpatient setting, when documented at the time of discharge. Thank you, Kia Martell [facility], CDIS Extension: [phone] Please use your independent medical judgment in providing your response. THIS QUERY IS PART OF THE PERMANENT MEDICAL RECORD Provider Response: Metabolic Encephalopathy
[2022-01-05 13:26] LABS: Glucose, Whole Blood 121 mg/dL (60-115)
[2022-01-05 14:42] LABS: Hematocrit 45.6 % (42.0-52.0); Hemoglobin 15.6 g/dl (14.0-18.0); Mean Corpuscular HGB Conc 34.2 g/dl (31.0-36.0); Mean Corpuscular Hemoglobin 31.1 pg (27.0-33.0); Mean Platelet Volume 12.8 fL (9.4-12.4); PLT CLUMP 1; Red Blood Count 5.01 X10*6/uL (4.60-5.80); Red Cell Distribution Width 12.4 % (11.0-16.0)
[2022-01-05 14:46] LABS: Platelet Count 197 X10*3/uL (160-400); White Blood Count 25.5 X10*3/uL (4.8-10.8)
[2022-01-05 15:09] LABS: Anion Gap 13 (12-20); Blood Urea Nitrogen 29 mg/dL (9-16); Calcium 8.5 mg/dL (8.4-10.2); Carbon Dioxide 24 mmol/L (22-29); Chloride 109 mmol/L (96-108); Creatinine Clr Calc Pharmacy 115.9; Estimated Glomerular Filt Rate > 60; Glucose Random 130 mg/dL (60-115); Potassium 4.5 mmol/L (3.3-5.1); Sodium 141 mmol/L (135-145)
--- NOTE | 2022-01-05 18:57 | P.PNNP_ITS ---
Subjective Subjective Date of Service: 01/05/22 Interval history: CHart REviewed. Events noted. Physical Exam Vital Signs: Vital Signs: Last Vital Signs Temp 96.9 F 01/05/22 06:37 Pulse 56 01/05/22 09:33 Resp 12 01/05/22 06:37 BP 127/71 01/05/22 09:33 Pulse Ox 97 01/05/22 09:33 O2 Del Method 01/05/22 06:37 O2 Flow Rate 2 01/05/22 06:37 Oxygen Flow Rate 4 01/03/22 15:43 BMI result Body Mass Index 29.5 Const: General: comfortable and no acute distress HEENT: Head: Yes normocephalic Neck: Neck: Yes no JVD Resp: Auscultation: clear to auscultation bilaterally Cardio: Jugular venous distension: no JVD Rate: regular rate Rhythm: regular rhythm GI: Auscultation: normal bowel sounds Neuro: General: moves all extremities Extrem: General: Yes no clubbing, cyanosis or edema Objective Data Labs CBC & Chem 7: 01/05/22 14:22 01/05/22 14:22 Labs: Laboratory Results - last 24 hr 01/04/22 01/05/22 01/05/22 21:51 07:03 13:22 WBC RBC Hgb Hct MCV MCH MCHC RDW Plt Count MPV Absolute Nucleated RBC Nucleated RBC % (auto) Sodium Potassium Chloride Carbon Dioxide Anion Gap BUN Creatinine Estim Creat Clear Calc Estimated GFR POC Glucose 153 H 132 H 121 H Random Glucose Calcium 01/05/22 01/05/22 14:22 14:22 WBC 25.5 H RBC 5.01 Hgb 15.6 Hct 45.6 MCV 91.0 MCH 31.1 MCHC 34.2 RDW 12.4 Plt Count 197 MPV 12.8 H Absolute Nucleated RBC 0.000 Nucleated RBC % (auto) 0.0 Sodium 141 Potassium 4.5 Chloride 109 H Carbon Dioxide 24 Anion Gap 13 BUN 29 H Creatinine 0.73 Estim Creat Clear Calc 115.9 Estimated GFR > 60 POC Glucose Random Glucose 130 H Calcium 8.5 Microbiology Microbiology Results: Microbiology 01/03/22 15:55 Blood - Venous Blood Culture - Preliminary No growth after 48 hours. 01/03/22 15:50 Blood - Venous Blood Culture - Final Coag negative Staphylococcus 01/03/22 18:36 Blood - Venous Blood Culture - Preliminary No growth after 24 hours. 01/03/22 18:36 Blood - Venous Blood Culture - Preliminary No growth after 24 hours. Procedures Date of Service Date of Service: 01/05/22 Assessment & Plan Assessment and plan (1) Hypernatremia: Status: Acute Plan 61 year year old male from [facility] with history of dementia, history of stroke with aphasia, AFIB on eliquis, HLD..He was brought from SNF to be evaluated for acute change i n status notably left sided hemiparesis and left facial droop.? +Covid with hypoxia, and covid pneumonia. Problem: #Hypernatremia--d/t dehydration lack of access to water - Reassess once Na improved to 140 and po intake tolerating. - Can hold additional D5W. - encourage FW intake. Can incorporate more carbohydrates if po intake poor. - isotonic saline for IV gtts will prolong recovery. - See if pharmacy can convert to D5W suspension for any needed gtt.s Time Spent With Patient Time: Total time spent is greater than 50% in coordination of care (as documented) at patient's floor/unit and/or counseling patient: Progress Note: Quality Stroke Does the patient have a stroke diagnosis?: Yes Reason for No Anti-thrombotic by Day Two: N/A - Med Ordered
[2022-01-05 19:47] VITALS: BP 121/64; PULSE 82; RESP 16; O2SAT 96
[2022-01-05] MEDS: Piperacillin Sodium/Tazobactam 4.5 GM in 0.9 % Sodium Chloride 100 ML IV (19:57)
--- NOTE | 2022-01-05 20:03 | PC.NURSE ---
Pt found by staff climbing out of bed, ripped out IV. Pt was positioned comfortably back in bed and IV reinserted in right hand. Dextrose infusion was finishing at the time of event. Antibiotics infusing at this time. Pt now has sitter at bed side.
[2022-01-05] MEDS: Remdesivir 100 MG in 0.9 % Sodium Chloride 230 ML 115 MG IV (21:13)
[2022-01-05 21:20] LABS: Glucose, Whole Blood 158 mg/dL (60-115)
[2022-01-05] MEDS: Insulin Lispro 100 UNIT/ML 3 ML VIAL SUBCUT (22:07)
[2022-01-06] VITALS (8 sets, daily range): BP systolic 111–132; BP diastolic 55–74; PULSE 52–98; RESP 12–16; TEMP 36.1–36.8; O2SAT 93–98
[2022-01-06] MEDS: Piperacillin Sodium/Tazobactam 4.5 GM in 0.9 % Sodium Chloride 100 ML IV ×4 (01:25→18:17)
[2022-01-06 03:56] LABS: Hematocrit 39.9 % (42.0-52.0); Hemoglobin 13.4 g/dl (14.0-18.0); Mean Corpuscular HGB Conc 33.6 g/dl (31.0-36.0); Mean Corpuscular Hemoglobin 30.5 pg (27.0-33.0); Mean Corpuscular Volume 90.9 fL (80.0-98.0); Mean Platelet Volume 12.4 fL (9.4-12.4); Platelet Count 220 X10*3/uL (160-400); Red Blood Count 4.39 X10*6/uL (4.60-5.80); Red Cell Distribution Width 12.3 % (11.0-16.0); White Blood Count 25.4 X10*3/uL (4.8-10.8)
[2022-01-06 04:20] LABS: Anion Gap 9 (12-20); Blood Urea Nitrogen 31 mg/dL (9-16); Calcium 8.4 mg/dL (8.4-10.2); Carbon Dioxide 28 mmol/L (22-29); Chloride 110 mmol/L (96-108); Estimated Glomerular Filt Rate > 60; Glucose Random 117 mg/dL (60-115); Potassium 3.4 mmol/L (3.3-5.1); Sodium 144 mmol/L (135-145)
--- NOTE | 2022-01-06 06:43 | PC.NURSE ---
Pt. found to be incontinent of urine. Total bed change completed. Pt. now resting comfortably in bed.
[2022-01-06 09:09] LABS: Glucose, Whole Blood 102 mg/dL (60-115)
--- NOTE | 2022-01-06 09:51 | P.PNIM_ITS ---
Subjective Subjective Date of Service: 01/06/22 Interval History: Seen in f/u for stroke left sided weakness, confusion, Hypernatremia Interval history: Diarrhea, improved and clinically more awake, interactive and cooperative, Review of Systems no fever no diarrhea Physical Exam Vital Signs: Vital Signs: Last Vital Signs Temp 98.1 F 01/06/22 04:49 Pulse 55 01/06/22 09:20 Resp 12 01/06/22 06:22 BP 111/63 01/06/22 09:20 Pulse Ox 93 01/06/22 09:20 O2 Del Method 01/06/22 06:22 O2 Flow Rate 2 01/05/22 06:37 Oxygen Flow Rate 4 01/03/22 15:43 BMI result Body Mass Index 29.5 Const: Other: Constitutional: alert, oriented to self, hospital, no distress Respiratory: Clear to auscultation. No wheezing, rales or rhonchi. Cardiovascular: S1 S2 regular. No murmurs, rubs or gallops. Gastrointestinal: Abdomen soft, non-tender, non-distended. Normal bowel sounds.? Neurologic:seem to be moving extremities better Skin: No rashes or lesions.? Musculoskeletal: No cyanosis or clubbing. Psychiatric: flat Objective Data Active Medications Acetaminophen (Acetaminophen Supp 650 Mg Supp.Rect) 650 mg MD Q6H PRN PRN Reason: Pain, Mild (Pain Scale 1-3) Acetaminophen (Acetaminophen 325 Mg Tablet) 650 mg PO Q6H PRN PRN Reason: Pain, Mild (Pain Scale 1-3) Atorvastatin Calcium (Atorvastatin Calcium 80 Mg Tablet) 80 mg PO DAILY [facility] Last Admin: 01/05/22 10:46 Dose: 80 mg Documented By: ALPHONSO Dexamethasone Sodium Phosphate (Dexamethasone Sod Phosphate 4 Mg/Ml Vial) 6 mg IVPUSH DAILY [facility] Last Admin: 01/05/22 10:46 Dose: 6 mg Documented By: ALPHONSO Remdesivir 100 mg/ Sodium (Chloride) 230 mls @ 115 mls/hr IV Q24H [facility] Stop: 01/07/22 21:59 Last Infusion: 01/06/22 00:20 Dose: 0 mls/hr Documented By: CHESTER Piperacillin Sod/Tazobactam (Sod 4.5 gm/ Sodium Chloride) 100 mls @ 200 mls/hr IV Q6H [facility] Last Admin: 01/06/22 06:25 Dose: 200 mls/hr Documented By: CHESTER Insulin Human Lispro (Insulin Lispro 100 Unit/Ml 3 Ml Vial) [facility]; Protocol Last Admin: 01/05/22 22:07 Dose: 2 unit Documented By: ALMA DELIA Melatonin (Melatonin 3 Mg Tablet) 3 mg PO BEDTIME PRN PRN Reason: Insomnia Ondansetron HCl (Ondansetron Hcl 4 Mg/2 Ml Vial) 4 mg IVPUSH Q8H PRN PRN Reason: Nausea and Vomiting Pharmacy Consult (Consult Rx Perform Med Rec) 1 each MISCELLANE ONCE PRN PRN Reason: Consult order Labs CBC & Chem 7: 01/06/22 03:30 01/06/22 03:30 Labs: Laboratory Results - last 24 hr 01/05/22 01/05/22 01/05/22 13:22 14:22 14:22 MCV 91.0 MCH 31.1 MCHC 34.2 RDW 12.4 Plt Count 197 MPV 12.8 H Absolute Nucleated RBC 0.000 Nucleated RBC % (auto) 0.0 Anion Gap 13 Estim Creat Clear Calc 115.9 Estimated GFR > 60 POC Glucose 121 H Random Glucose 130 H Calcium 8.5 01/05/22 01/06/22 01/06/22 21:14 03:30 03:30 MCV 90.9 MCH 30.5 MCHC 33.6 RDW 12.3 Plt Count 220 MPV 12.4 Absolute Nucleated RBC 0.000 Nucleated RBC % (auto) 0.0 Anion Gap 9 L Estim Creat Clear Calc 102.0 Estimated GFR > 60 POC Glucose 158 H Random Glucose 117 H Calcium 8.4 01/06/22 09:06 MCV MCH MCHC RDW Plt Count MPV Absolute Nucleated RBC Nucleated RBC % (auto) Anion Gap Estim Creat Clear Calc Estimated GFR POC Glucose 102 Random Glucose Calcium Microbiology Microbiology Results: Microbiology 01/03/22 18:36 Blood Culture - Preliminary Blood - Venous No growth after 48 hours. 01/03/22 18:36 Blood Culture - Preliminary Blood - Venous No growth after 48 hours. 01/03/22 15:55 Blood Culture - Preliminary Blood - Venous No growth after 48 hours. 01/03/22 15:50 Blood Culture - Final Blood - Venous Coag negative Staphylococcus Assessment and Plan (1) Hypernatremia: Status: Acute (2) Encephalopathy: Status: Acute (3) COVID-19 virus infection: Status: Acute Plan 61 year year old male from [facility] with history of dementia, history of stroke with aphasia, AFIB on eliquis, HLD..He was brought from SNF to be evaluated for acute change in status notably left sided hemiparesis and left facial droop.? +Covid with hypoxia, and covid pneumonia. #Left sided weaknes, facial weakness-- evaluated by neuro and think more likely from metabolic encephalopathy, seems more alert, and clear, #Covid + with hypoxia only one episodef in Ed but qualified for steroid, -O2 PRN -Dexamethasone, remdesevir--D4 #Dirrhea--likely from covid, negative c dif--IVF #HypERnatremia--d/t dehydration lack of access to water--resolved with IVF -D5 and follow level, repeat labs today, Nephro following #elevated troponin--likely from acute illness, no chest pain -Repeat level came down #Polycythemia due to hemoconcentration - and repeat level #HLD-stain #HTN--BP med after med rec #Leukocytosis--initially CXR was questionable for PNA and was started on Ceftriaxone, later Zosyn. I believed high WBC is due to dexamethasone, if repeat CXR is unremarkable, will withdraw Zosyn Need for inpatient: encephalopathy, Covid requiring IV remedesevir, Hypernatremia getting IVF Dispo: [facility] Quality Stroke Does the patient have a stroke diagnosis?: Yes Reason for No Anti-thrombotic by Day Two: N/A - Med Ordered VTE Prior VTE?: No VTE Risk Level:: Medical - low VTE Device Contraindication: Treatment Not Indicated VTE Drug Contraindication: N/A - Med Ordered
[2022-01-06] MEDS: dexAMETHasone sod phosphate 4 MG/ML VIAL 6 MG IVPUSH (09:59)
[2022-01-06] MEDS: Atorvastatin Calcium 80 MG TABLET PO (09:59)
--- NOTE | 2022-01-06 10:12 | MHC.CM.PN ---
Attempted to meet with patient in regards to d/c planning. 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 Spoke with patient's son/HCP, Serafin via telephone at [phone] with the help of the spanish interpreter. Patient is a LTC resident of [facility]. Serafin is aware patient is positive for Covid. Patient is vaxxed and boosted x2. PCP is Dr Becerra. Copy of MOLST and HCP obtained from [facility]. Patient will return to [facility] via BLS when medically stable. IMM explained and sent via certified mail to Serafin at [address] [place] [phone]. Continue to monitor for d/c needs.
--- NOTE | 2022-01-06 11:39 | P.CDIC_ITS ---
CDI Concurrent Query Documentation Clarification: PHYSICIAN'S DOCUMENTATION REQUEST Date of Query: 01/06/22 1139 Patient Name: Serafin Miller Admit Date: 01/03/22 Dear Doctor, A review of the medical record indicates additional documentation may be needed. Please review below and update the documentation accordingly. Clinical Indicators: Risk Factors/Clinical Indicators/Treatments PN: Atrial fibrillation on Eliquis. PMH: Chronic atrial fibrillation. If possible, please provide further specificity regarding atrial fibrillation, such as: Specifics to the chronic atrial fibrillation: * Persistent atrial fibrillation * Permanent atrial fibrillation * Long lasting persistent atrial fibrillation: episodes of continuous AF that last more than 12 months, * Other (please specify) * Unable to determine Use of terms such as suspected, likely, concern for, or probable (associated with a specific diagnosis that is being evaluated, monitored, or treated as if it exists) are acceptable and can be coded in the inpatient setting, when doc umented at the time of discharge. Thank you, Kia Martell [facility], CDIS Extension: [phone] Please use your independent medical judgment in providing your response. THIS QUERY IS PART OF THE PERMANENT MEDICAL RECORD Provider Response: Other Other Diagnosis: Chronic AFIB
[2022-01-06 12:57] LABS: Glucose, Whole Blood 112 mg/dL (60-115)
--- NOTE | 2022-01-06 13:44 | MHC.SLORD ---
Speech Language Pathology Order Status: Per RN, pt w/ no difficulties during meals. Continue w/ CHOPPED/ADVANCED (NDD3) diet and THIN liquids.
[2022-01-06 18:19] LABS: Glucose, Whole Blood 130 mg/dL (60-115)
--- NOTE | 2022-01-06 18:36 | PC.NURSE ---
PATIENT WAS INC OF URINE ,BED BATH GIVEN ,BEDDING CHANGE .
[2022-01-06 20:31] LABS: Glucose, Whole Blood 129 mg/dL (60-115)
[2022-01-06] MEDS: Remdesivir 100 MG in 0.9 % Sodium Chloride 230 ML 115 MG IV (22:18)
--- NOTE | 2022-01-06 22:36 | PC.NURSE ---
PATIENT WAS INC OF LARGE BOWEL MOVEMENT AND URINE ,BED BATH GIVEN ,BEDDING CHANGE ,PATIENT ATE 100 % OF DINNER DRANK 2000 ML FLUIDS .
[2022-01-07] VITALS (8 sets, daily range): BP systolic 104–122; BP diastolic 64–79; PULSE 64–84; RESP 16–19; TEMP 36.2–36.9; O2SAT 93–100
[2022-01-07] MEDS: Piperacillin Sodium/Tazobactam 4.5 GM in 0.9 % Sodium Chloride 100 ML IV ×3 (01:06→12:41)
--- NOTE | 2022-01-07 06:25 | PC.NURSE ---
PATIENT WAS INC OF URINE ,BED BATH GIVEN ,LINEN CHANGE ,PATIENT NOW RESTING WATCHING TELEVISION .
--- NOTE | 2022-01-07 07:09 | PC.NURSE ---
report given to HIWOT Cummins
[2022-01-07 07:30] LABS: Glucose, Whole Blood 112 mg/dL (60-115)
--- NOTE | 2022-01-07 08:15 | PC.NURSE ---
report given to HIWOT Moura. pt will be transferred to [facility].
[2022-01-07 09:24] LABS: Hematocrit 41.5 % (42.0-52.0); Hemoglobin 13.7 g/dl (14.0-18.0); Mean Corpuscular Hemoglobin 30.6 pg (27.0-33.0); Mean Corpuscular Volume 92.8 fL (80.0-98.0); Mean Platelet Volume 12.7 fL (9.4-12.4); Platelet Count 199 X10*3/uL (160-400); Red Blood Count 4.47 X10*6/uL (4.60-5.80); Red Cell Distribution Width 12.6 % (11.0-16.0); White Blood Count 16.4 X10*3/uL (4.8-10.8)
[2022-01-07 09:34] LABS: Glucose, Whole Blood 126 mg/dL (60-115)
[2022-01-07 09:36] LABS: Anion Gap 11 (12-20); Blood Urea Nitrogen 26 mg/dL (9-16); Calcium 7.9 mg/dL (8.4-10.2); Carbon Dioxide 26 mmol/L (22-29); Chloride 109 mmol/L (96-108); Estimated Glomerular Filt Rate > 60; Glucose Random 141 mg/dL (60-115); Sodium 142 mmol/L (135-145)
[2022-01-07] MEDS: Atorvastatin Calcium 80 MG TABLET PO ×2 (10:16→21:06)
[2022-01-07] MEDS: dexAMETHasone sod phosphate 4 MG/ML VIAL 6 MG IVPUSH (10:16)
[2022-01-07 11:10] LABS: Glucose, Whole Blood 118 mg/dL (60-115)
--- NOTE | 2022-01-07 12:37 | HO.PM.IMPN ---
Subjective Subjective Date of Service: 01/07/22 Interval History: Seen in f/u for stroke left sided weakness, confusion, Hypernatremia Interval history: he is fully alert, interative, no sob, no diarrhea, no fever, ambulated with staff yesterday Review of Systems no fever no diarrhea Physical Exam Vital Signs: Vital Signs: Last Vital Signs Temp 98.5 F 01/07/22 11:57 Pulse 67 01/07/22 11:57 Resp 19 01/07/22 11:57 BP 120/68 01/07/22 11:57 Pulse Ox 100 01/07/22 11:57 O2 Del Method 01/07/22 11:57 O2 Flow Rate 2 01/05/22 06:37 Oxygen Flow Rate 4 01/03/22 15:43 BMI result Body Mass Index 29.5 Const: Other: Constitutional: alert, oriented to self, hospital, no distress Respiratory: Clear to auscultation. No wheezing, rales or rhonchi. Cardiovascular: S1 S2 regular. No murmurs, rubs or gallops. Gastrointestinal: Abdomen soft, non-tender, non-distended. Normal bowel sounds.? Neurologic:seem to be moving extremities better Skin: No rashes or lesions.? Musculoskeletal: No cyanosis or clubbing. Psychiatric: flat Objective Data Active Medications Acetaminophen (Acetaminophen Supp 650 Mg Supp.Rect) 650 mg [place] Q6H PRN PRN Reason: Pain, Mild (Pain Scale 1-3) Acetaminophen (Acetaminophen 325 Mg Tablet) 650 mg PO Q6H PRN PRN Reason: Pain, Mild (Pain Scale 1-3) Atorvastatin Calcium (Atorvastatin Calcium 80 Mg Tablet) 80 mg PO DAILY [facility] Last Admin: 01/07/22 10:16 Dose: 80 mg Documented By: COTKEZIA Dexamethasone Sodium Phosphate (Dexamethasone Sod Phosphate 4 Mg/Ml Vial) 6 mg IVPUSH DAILY [facility] Last Admin: 01/07/22 10:16 Dose: 6 mg Documented By: COTEMA Remdesivir 100 mg/ Sodium (Chloride) 230 mls @ 115 mls/hr IV Q24H [facility] Stop: 01/07/22 21:59 Last Infusion: 01/07/22 08:07 Dose: 0 mls/hr Documented By: MORRIA Piperacillin Sod/Tazobactam (Sod 4.5 gm/ Sodium Chloride) 100 mls @ 200 mls/hr IV Q6H [facility] Last Infusion: 01/07/22 08:07 Dose: 0 mls/hr Documented By: MARY Insulin Human Lispro (Insulin Lispro 100 Unit/Ml 3 Ml Vial) 0 unit SUBCUT QIDACHS [facility]; Protocol Last Admin: 01/07/22 11:15 Dose: Not Given Documented By: GEMMA Non-Admin Reason: No Insulin Coverage Melatonin (Melatonin 3 Mg Tablet) 3 mg PO BEDTIME PRN PRN Reason: Insomnia Ondansetron HCl (Ondansetron Hcl 4 Mg/2 Ml Vial) 4 mg IVPUSH Q8H PRN PRN Reason: Nausea and Vomiting Pharmacy Consult (Consult Rx Perform Med Rec) 1 each MISCELLANE ONCE PRN PRN Reason: Consult order Labs CBC & Chem 7: 01/07/22 08:40 01/07/22 08:40 Labs: Laboratory Results - last 24 hr 01/06/22 01/06/22 01/06/22 12:53 18:15 20:28 MCV MCH MCHC RDW Plt Count MPV Absolute Nucleated RBC Nucleated RBC % (auto) Anion Gap Estim Creat Clear Calc Estimated GFR POC Glucose 112 130 H 129 H Random Glucose Calcium 01/07/22 01/07/22 01/07/22 07:26 08:40 08:40 MCV 92.8 MCH 30.6 MCHC 33.0 RDW 12.6 Plt Count 199 MPV 12.7 H Absolute Nucleated RBC 0.000 Nucleated RBC % (auto) 0.0 Anion Gap 11 L Estim Creat Clear Calc 94.0 Estimated GFR > 60 POC Glucose 112 Random Glucose 141 H Calcium 7.9 L 01/07/22 01/07/22 09:16 10:57 MCV MCH MCHC RDW Plt Count MPV Absolute Nucleated RBC Nucleated RBC % (auto) Anion Gap Estim Creat Clear Calc Estimated GFR POC Glucose 126 H 118 H Random Glucose Calcium Assessment and Plan (1) Hypernatremia: Status: Acute (2) Encephalopathy: Status: Acute (3) COVID-19 virus infection: Status: Acute Plan 61 year year old male from [facility] with history of dementia, history of stroke with aphasia, AFIB on eliquis, HLD..He was brought from SNF to be evaluated for acute change in status notably left sided hemiparesis and left facial droop.? +Covid with hypoxia, and covid pneumonia. #Left sided weaknes, facial weakness-- evaluated by neuro and think more likely from metabolic encephalopathy, seems more alert, and clear, #Covid + with hypoxia only one episodef in Ed but qualified for steroid, -O2 PRN -Dexamethasone, remdesevir--D5, stop Dexa as well #Dirrhea--likely from covid, negative c dif--IVF #HypERnatremia--d/t dehydration lack of access to water--resolved with IVF -D5 and follow level, repeat labs today, Nephro following #elevated troponin--likely from acute illness, no chest pain -Repeat level came down #Polycythemia due to hemoconcentration - and repeat level #HLD-stain #HTN--BP med after med rec #Leukocytosis--initially CXR was questionable for PNA and was started on Ceftriaxone, later Zosyn. I believed high WBC is due to dexamethasone, if repeat CXR is unremarkable, will withdraw Zosyn Need for inpatient: encephalopathy, Covid requiring IV remedesevir, Hypernatremia getting IVF Dispo: Back to SNF after completion of covid stay Quality Stroke Does the patient have a stroke diagnosis?: Yes Reason for No Anti-thrombotic by Day Two: N/A - Med Ordered VTE Prior VTE?: No VTE Risk Level:: Medical - low VTE Device Contraindication: Treatment Not Indicated VTE Drug Contraindication: N/A - Med Ordered
[2022-01-07] MEDS: amLODIPine Besylate 10 MG TABLET PO (13:38)
[2022-01-07] MEDS: Multivitamin TABLET 1 TAB PO (13:38)
[2022-01-07] MEDS: Apixaban 5 MG TABLET PO ×2 (13:38→21:06)
[2022-01-07] MEDS: allopurinoL 100 MG TABLET PO (13:39)
[2022-01-07] MEDS: FLUoxetine HCl 10 MG CAPSULE PO (13:39)
[2022-01-07] MEDS: traZODone HCL 50 MG TABLET 12.5 MG PO ×2 (13:39→21:06)
[2022-01-07] MEDS: Divalproex Sodium Sprinkles 125 MG CAP.DR.SPR 625 MG PO ×2 (13:39→21:05)
[2022-01-07] MEDS: Furosemide 40 MG TABLET PO (13:39)
--- NOTE | 2022-01-07 15:02 | PM.PNNEP ---
Subjective Subjective Date of Service: 01/07/22 Interval history: Chart Reviewed. Events noted. Hypernatremia resolved. Physical Exam Vital Signs: Vital Signs: Last Vital Signs Temp 98.5 F 01/07/22 11:57 Pulse 67 01/07/22 11:57 Resp 19 01/07/22 11:57 BP 120/68 01/07/22 11:57 Pulse Ox 100 01/07/22 11:57 O2 Del Method 01/07/22 11:57 O2 Flow Rate 2 01/05/22 06:37 Oxygen Flow Rate 4 01/03/22 15:43 BMI result Body Mass Index 29.5 Const: General: cooperative and no acute distress HEENT: Head: Yes normocephalic Neck: Neck: Yes no JVD Resp: Auscultation: clear to auscultation bilaterally Cardio: Jugular venous distension: no JVD Rate: regular rate Rhythm: regular rhythm Heart sounds: S1 normal heart sound present and S2 normal heart sound present GI: Auscultation: normal bowel sounds Neuro: General: tone normal Extrem: General: Yes no clubbing, cyanosis or edema Objective Data Labs CBC & Chem 7: 01/07/22 08:40 01/07/22 08:40 Labs: Laboratory Results - last 24 hr 01/06/22 01/06/22 01/07/22 18:15 20:28 07:26 WBC RBC Hgb Hct MCV MCH MCHC RDW Plt Count MPV Absolute Nucleated RBC Nucleated RBC % (auto) Sodium Potassium Chloride Carbon Dioxide Anion Gap BUN Creatinine Estim Creat Clear Calc Estimated GFR POC Glucose 130 H 129 H 112 Random Glucose Calcium 01/07/22 01/07/22 01/07/22 08:40 08:40 09:16 WBC 16.4 H RBC 4.47 L Hgb 13.7 L Hct 41.5 L MCV 92.8 MCH 30.6 MCHC 33.0 RDW 12.6 Plt Count 199 MPV 12.7 H Absolute Nucleated RBC 0.000 Nucleated RBC % (auto) 0.0 Sodium 142 Potassium 4.0 Chloride 109 H Carbon Dioxide 26 Anion Gap 11 L BUN 26 H Creatinine 0.90 Estim Creat Clear Calc 94.0 Estimated GFR > 60 POC Glucose 126 H Random Glucose 141 H Calcium 7.9 L 01/07/22 10:57 WBC RBC Hgb Hct MCV MCH MCHC RDW Plt Count MPV Absolute Nucleated RBC Nucleated RBC % (auto) Sodium Potassium Chloride Carbon Dioxide Anion Gap BUN Creatinine Estim Creat Clear Calc Estimated GFR POC Glucose 118 H Random Glucose Calcium Microbiology Microbiology Results: Microbiology 01/03/22 18:36 Blood - Venous Blood Culture - Preliminary No growth after 48 hours. 01/03/22 18:36 Blood - Venous Blood Culture - Preliminary No growth after 48 hours. 01/03/22 15:55 Blood - Venous Blood Culture - Preliminary No growth after 48 hours. 01/03/22 15:50 Blood - Venous Blood Culture - Final Coag negative Staphylococcus Procedures Date of Service Date of Service: 01/07/22 Assessment & Plan Assessment and plan (1) Hypernatremia: Status: Acute Plan 61 year year old male from [facility] with history of dementia, history of stroke with aphasia, AFIB on eliquis, HLD..He was brought from SNF to be evaluated for acute change in status notably left sided hemiparesis and left facial droop.? +Covid with hypoxia, and covid pneumonia. Problem: #Hypernatremia--d/t dehydration lack of access to water - Reassess once Na improved to 140 and po intake tolerating. - Can hold additional D5W. - encourage FW intake. Can incorporate more carbohydrates if po intake poor. - Can restart D5W if Na increases > 145 meq/L Nephrology will sign off. Please call with questions. Thank you for this consultation. Time Spent With Patient Time: Total time spent is greater than 50% in coordination of care (as documented) at patient's floor/unit and/or counseling patient: Progress Note: Quality Stroke Does the patient have a stroke diagnosis?: Yes Reason for No Anti-thrombotic by Day Two: N/A - Med Ordered
[2022-01-07 16:19] LABS: Glucose, Whole Blood 139 mg/dL (60-115)
[2022-01-07] MEDS: Remdesivir 100 MG in 0.9 % Sodium Chloride 230 ML 115 MG IV (21:05)
[2022-01-07] MEDS: lisinopriL 5 MG TABLET PO (21:06)
[2022-01-07 21:26] LABS: Glucose, Whole Blood 132 mg/dL (60-115)
[2022-01-08] VITALS (7 sets, daily range): BP systolic 100–114; BP diastolic 60–75; PULSE 61–93; RESP 18–20; TEMP 36.1–37.1; O2SAT 92–100
[2022-01-08 07:25] LABS: Glucose, Whole Blood 117 mg/dL (60-115)
[2022-01-08 08:04] LABS: Anion Gap 10 (12-20); Blood Urea Nitrogen 19 mg/dL (9-16); Calcium 8.1 mg/dL (8.4-10.2); Carbon Dioxide 25 mmol/L (22-29); Chloride 107 mmol/L (96-108); Creatinine Clr Calc Pharmacy 119.2; Estimated Glomerular Filt Rate > 60; Glucose Random 112 mg/dL (60-115); Potassium 4.4 mmol/L (3.3-5.1); Sodium 138 mmol/L (135-145)
[2022-01-08] MEDS: dexAMETHasone sod phosphate 4 MG/ML VIAL 6 MG IVPUSH (08:27)
[2022-01-08] MEDS: traZODone HCL 50 MG TABLET 12.5 MG PO ×2 (08:28→20:50)
[2022-01-08] MEDS: Atorvastatin Calcium 80 MG TABLET PO ×2 (08:28→20:55)
[2022-01-08] MEDS: Furosemide 40 MG TABLET PO (08:29)
[2022-01-08] MEDS: Apixaban 5 MG TABLET PO ×2 (08:29→20:49)
[2022-01-08] MEDS: allopurinoL 100 MG TABLET PO (08:29)
[2022-01-08] MEDS: Multivitamin TABLET 1 TAB PO (08:29)
[2022-01-08] MEDS: amLODIPine Besylate 10 MG TABLET PO (08:29)
[2022-01-08] MEDS: FLUoxetine HCl 10 MG CAPSULE PO (08:29)
[2022-01-08] MEDS: Divalproex Sodium Sprinkles 125 MG CAP.DR.SPR 625 MG PO ×2 (08:30→20:49)
--- NOTE | 2022-01-08 10:52 | HO.PM.IMPN ---
Subjective Subjective Date of Service: 01/09/22 Interval History: Seen in f/u for stroke left sided weakness, confusion, Hypernatremia Interval history: doing well, no hypoxia, no new neur0 change Review of Systems no fever no diarrhea Physical Exam Vital Signs: Vital Signs: Last Vital Signs Temp 97.0 F 01/08/22 07:38 Pulse 69 01/08/22 07:38 Resp 20 01/08/22 07:38 BP 114/68 01/08/22 07:38 Pulse Ox 100 01/08/22 07:38 O2 Del Method 01/08/22 07:38 O2 Flow Rate 2 01/05/22 06:37 Oxygen Flow Rate 4 01/03/22 15:43 BMI result Body Mass Index 29.5 Const: Other: Constitutional: alert, oriented to self, hospital, no distress Respiratory: Clear to auscultation. No wheezing, rales or rhonchi. Cardiovascular: S1 S2 regular. No murmurs, rubs or gallops. Gastrointestinal: Abdomen soft, non-tender, non-distended. Normal bowel sounds.? Neurologic:seem to be moving extremities better Skin: No rashes or lesions.? Musculoskeletal: No cyanosis or clubbing. Psychiatric: flat Objective Data Active Medications Acetaminophen (Acetaminophen Supp 650 Mg Supp.Rect) 650 mg CO Q6H PRN PRN Reason: Pain, Mild (Pain Scale 1-3) Acetaminophen (Acetaminophen 325 Mg Tablet) 650 mg PO Q6H PRN PRN Reason: Pain, Mild (Pain Scale 1-3) Allopurinol (Allopurinol 100 Mg Tablet) 100 mg PO DAILY [facility] Last Admin: 01/08/22 08:29 Dose: 100 mg Documented By: MONICA Amlodipine Besylate (Amlodipine Besylate 10 Mg Tablet) 10 mg PO DAILY [facility]; Protocol Last Admin: 01/08/22 08:29 Dose: 10 mg Documented By: MONICA Apixaban (Apixaban 5 Mg Tablet) 5 mg PO BID [facility] Last Admin: 01/08/22 08:29 Dose: 5 mg Documented By: MONICA Atorvastatin Calcium (Atorvastatin Calcium 80 Mg Tablet) 80 mg PO DAILY [facility] Last Admin: 01/08/22 08:28 Dose: 80 mg Documented By: MONICA Atorvastatin Calcium (Atorvastatin Calcium 80 Mg Tablet) 80 mg PO BEDTIME [facility] Last Admin: 01/07/22 21:06 Dose: 80 mg Documented By: BRIA Dexamethasone Sodium Phosphate (Dexamethasone Sod Phosphate 4 Mg/Ml Vial) 6 mg IVPUSH DAILY [facility] Last Admin: 01/08/22 08:27 Dose: 6 mg Documented By: MONICA Divalproex Sodium (Divalproex Sodium Sprinkles 125 Mg ) 625 mg PO BID [facility] Last Admin: 01/08/22 08:30 Dose: 625 mg Documented By: MONICA Docusate Sodium (Docusate Sodium 100 Mg Capsule) 100 mg PO BID PRN PRN Reason: Constipation Fluoxetine HCl (Fluoxetine Hcl 10 Mg Capsule) 10 mg PO DAILY [facility] Last Admin: 01/08/22 08:29 Dose: 10 mg Documented By: MONICA Furosemide (Furosemide 40 Mg Tablet) 40 mg PO DAILY [facility]; Protocol Last Admin: 01/08/22 08:29 Dose: 40 mg Documented By: MONICA Insulin Human Lispro (Insulin Lispro 100 Unit/Ml 3 Ml Vial) 0 unit SUBCUT QIDACHS [facility]; Protocol Last Admin: 01/08/22 08:31 Dose: Not Given Documented By: MONICA Non-Admin Reason: No Insulin Coverage Lisinopril (Lisinopril 5 Mg Tablet) 5 mg PO BEDTIME [facility]; Protocol Last Admin: 01/07/22 21:06 Dose: 5 mg Documented By: BRIA Melatonin (Melatonin 3 Mg Tablet) 3 mg PO BEDTIME PRN PRN Reason: Insomnia Multivitamins/Vitamin C (Multivitamin Tablet) 1 tab PO DAILY [facility] Last Admin: 01/08/22 08:29 Dose: 1 tab Documented By: MONICA Ondansetron HCl (Ondansetron Hcl 4 Mg/2 Ml Vial) 4 mg IVPUSH Q8H PRN PRN Reason: Nausea and Vomiting Pharmacy Consult (Consult Rx Perform Med Rec) 1 each MISCELLANE ONCE PRN PRN Reason: Consult order Trazodone HCl (Trazodone Hcl 50 Mg Tablet) 12.5 mg PO BID [facility] Last Admin: 01/08/22 08:28 Dose: 12.5 mg Documented By: MONICA Labs CBC & Chem 7: 01/07/22 08:40 01/08/22 07:38 Labs: Laboratory Results - last 24 hr 01/07/22 01/07/22 01/07/22 10:57 16:12 21:10 Anion Gap Estim Creat Clear Calc Estimated GFR POC Glucose 118 H 139 H 132 H Random Glucose Calcium 01/08/22 01/08/22 07:14 07:38 Anion Gap 10 L Estim Creat Clear Calc 119.2 Estimated GFR > 60 POC Glucose 117 H Random Glucose 112 Calcium 8.1 L Assessment and Plan (1) Hypernatremia: Status: Acute (2) Encephalopathy: Status: Acute (3) COVID-19 virus infection: Status: Acute Plan 61 year year old male from [facility] with history of dementia, history of stroke with aphasia, AFIB on eliquis, HLD..He was brought from SNF to be evaluated for acute change in status notably left sided hemiparesis and left facial droop.? +Covid with hypoxia, and covid pneumonia. #Left sided weaknes, facial weakness-- evaluated by neuro and think more likely from metabolic encephalopathy, seems more alert, and clear, #Covid + with hypoxia only one episodef in Ed but qualified for steroid, -O2 PRN -Dexamethasone, remdesevir--D5/5,stopped #Dirrhea--likely from covid, negative c dif. Resolved #HypERnatremia--d/t dehydration lack of access to water-- resolved #elevated troponin--likely from acute illness, no chest pain -Repeat level came down #Polycythemia due to hemoconcentration - and repeat level #HLD-stain #history of AFIB, rate controlled without meds, continue eliquis #HTN--BP Norvasc #Leukocytosis--initially CXR was questionable for PNA and was started on Ceftriaxone, later Zosyn. I believed high WBC is due to dexamethasone, if repeat CXR is unremarkable, Zosyn stopped Need for inpatient:returning to SNF when bed available Quality Stroke Does the patient have a stroke diagnosis?: Yes Reason for No Anti-thrombotic by Day Two: N/A - Med Ordered VTE Prior VTE?: No VTE Risk Level:: Medical - low VTE Device Contraindication: Treatment Not Indicated VTE Drug Contraindication: N/A - Med Ordered
[2022-01-08 11:27] LABS: Glucose, Whole Blood 116 mg/dL (60-115)
--- NOTE | 2022-01-08 15:23 | MHC.CM.PN ---
IMM 01/08/22, CM ATTEMPTED TO CONTACT PT'S SON JOSE LUIS AT 2:20PM VIA ROOF TECHNICIAN AT NUMBER ON FILE TO DELIVER IMM AND LET HIM KNOW OF PLAN TO D/C BACK TO LTC AT [facility] BY TOMORROW, NO ANSWER & MONOTYPE CASTER LEFT MESSAGE, CM CONTACTED [facility] AND THEY ARE UNABLE TO TRANSPORT BEFORE 10PM THEREFORE TRANSPORT HAS BEEN SET UP FOR 0900 TOMORROW 01/09/22, [facility] AND [facility] UPDATED.
[2022-01-08 15:32] LABS: Glucose, Whole Blood 138 mg/dL (60-115)
[2022-01-08] MEDS: lisinopriL 5 MG TABLET PO (20:49)
[2022-01-09] VITALS: BP 108/68; PULSE 74; RESP 18; TEMP 37; O2SAT 97
[2022-01-09 00:42] LABS: Glucose, Whole Blood 142 mg/dL (60-115)
[2022-01-09 04:00] VITALS: BP 123/75; PULSE 72; RESP 20; TEMP 37; O2SAT 95
--- NOTE | 2022-01-09 07:22 | PM.DS ---
DS: Providers Provider Date of Service: 01/09/22 Date of admission: 01/03/22 17:22 Primary care physician: Unknown Physician Consults: 01/03/22 17:22 Consult to Neurology Routine Consulting Provider: Geo Cavazos Reason for consultation: stroke Has provider been notified: No 01/03/22 17:29 Consult to Nephrology Routine Consulting Provider: Chris Hurd Reason for consultation: Hypernatremia Has provider been notified: No DS: Diagnosis Discharge Diagnosis (1) Hypernatremia: Status: Acute (2) Encephalopathy: Status: Acute (3) COVID-19 virus infection: Status: Acute DS: Summary Hospital Course Hospital Course: admission HPI Chief Complaint: left sided weakness and left facial droop 61 year year old male from [facility] with history of dementia type unknown,? history of stroke with aphasia, AFIB on eliquis, HLD..He was brought from SNF to be evaluated for acute change in status notably left sided hemiparesis and left facial droop. In ED? was not followin command and? no meaningful could be obtained, when I saw him around 445 he was reportedly more alert and via senior web services developer was able to respond to to I am fine when asked how he's doing, he couldn't say his name or where he was or to offer any additional history. CT head no acute stroke, no tpa d/t antiocoaglation with eliquis.? Of note he has been diagnosed with covid within a week and not on any specific treatment,? his O2 sat was reported to be 89% and improved with oxygen. CXR show possible pneumonia, WBC is 13.9, troponin is 179, covid is positive Hospital course: patient was brought to the hospital due to confusion with initial concern of acute stroke. head CT showed no acute stroke sodium level was 152, COVID-19 was positive and he was hypoxic at a time. He was admitted for further management. #Left sided weaknes, facial weakness--exam was limitted at that time as patient was confused not talking and could not fully participate, the obvious concern was that of stroke, however a CT of the head was negative. He was on eliquis and as such would not have been a candidate for tPA anyway. He was assessed by Neuro and thought that his presentation was more consistent with encephalopathy. Over the course of hospitalization, his mental status improved, he exhibited no further signs of stroke PT and OT work with him. He seemed to be back at his baseline. #Covid + Initially he was hypoxic with oxygen saturation of 89%, additional are COVID-19 manifestation was diarrhea because of the hypoxemia he was treated with Decadron and remdesivir for 5 days. He presently no symptoms of COVID-19, oxygen saturation is 100% on room air. Diarrhea is also resolved. Therefore he would not along the treated with the addition of Decadron and he has completed a 5 day protocol of breath days via. Initially thought to have pneumonia and so was started on Abx however repeat CXR showed no evidence of pneumonia and incrased WBC was due to steroid, so antibiotics were stopped and he remains fever free, WBC has come down, no cough and n sob #Dirrhea--likely from covid, negative c dif. Resolved #HypERnatremia--due to dehydration from diarrhea, and lack of water--He was hydrated with IV fluid with resolution of Hyeperntremia. Sodium level is presently 138 #elevated troponin--likely from acute illness, no chest pain -Repeat level came down. No A further testing was warranted. #Polycythemia due to hemoconcentration--resolved. #HLD- continue Lipitor #HTN- continue Norvasc and Lisinopril #history of gout--continue Allopurinol #Leukocytosis--initially CXR was questionable for PNA and was started on Ceftriaxone, later? Zosyn. I believed high WBC wass due to dexamethasone, repeat CXR waas unremarkable so antibiotics stopped #AFIB--continue Elquis Time Spent with Patient Time attestation: Total time spent providing and/or coordinating discharge services: Discharge coordination time: Greater than 30 minutes Quality: Safe Use of Opioids Does Pt have an Active Cancer Diagnosis on the Problem List?: No Quality: Stroke Does the patient have a stroke diagnosis?: No Physical Exam Vital Signs: Vital Signs: Last Vital Signs Temp 98.6 F 01/09/22 04:00 Pulse 72 01/09/22 04:00 Resp 20 01/09/22 04:00 BP 123/75 01/09/22 04:00 Pulse Ox 95 01/09/22 04:00 O2 Del Method 01/09/22 04:00 O2 Flow Rate 2 01/05/22 06:37 Oxygen Flow Rate 4 01/03/22 15:43 BMI result Body Mass Index 29.5 DS: Data Data Completed and Pending Labs on day of discharge: Laboratory Results - last 24 hr 01/08/22 01/08/22 01/08/22 07:14 07:38 11:19 Sodium 138 Potassium 4.4 Chloride 107 Carbon Dioxide 25 Anion Gap 10 L BUN 19 H Creatinine 0.71 Estim Creat Clear Calc 119.2 Estimated GFR > 60 POC Glucose 117 H 116 H Random Glucose 112 Calcium 8.1 L 01/08/22 01/08/22 15:27 20:46 Sodium Potassium Chloride Carbon Dioxide Anion Gap BUN Creatinine Estim Creat Clear Calc Estimated GFR POC Glucose 138 H 142 H Random Glucose Calcium Discharge Plan Discharge Anticipated Discharge Date/Time: 01/09/22 07:24 Patient Disposition: Xfer SNF Discharge Diagnosis: Encephalopathy, covid, hypernatremia, diarrhea Referrals: Physician,Unknown J [Primary Care Provider] - 1 Week Discharge Medications: Continued multivitamin Tablet 1 tab PO DAILY furosemide [Lasix] 40 mg Tablet 40 mg PO DAILY atorvastatin 80 mg Tablet 80 mg PO BEDTIME trazodone 50 mg Tablet 12.5 mg PO BID allopurinol 100 mg Tablet 100 mg PO DAILY amlodipine 10 mg Tablet 10 mg PO DAILY divalproex [Depakote] 125 mg Tablet,Delayed Release (Dr/Ec) 625 mg PO BID fluoxetine 10 mg Capsule 10 mg PO DAILY docusate sodium [Colace] 100 mg Capsule 100 mg PO BID PRN (Reason: Constipation) lisinopril 5 mg Tablet 5 mg PO BEDTIME [id number] C-Mn [Glucosamine Chondroitin MaxStr] 500-400 mg Capsule 1 cap PO DAILY diclofenac sodium 1 % Gel 4 g TOPICAL BID PRN (Reason: Pain) Rx Instructions: APPLY TO AFFECTED JOINTS Eliquis 5 mg Tablet 5 mg PO BID Discharge Orders: Discharge Order (Routine); Ordered 01/09/22 Ordered By: Adria Macdonald Diet: Advance to usual diet Activity on Discharge: As tolerated Stand Alone Forms: Patient Portal Discharge page Care Plan Goals: Full recovery from encephalopathy Health Concerns: COVID-19, encephalopathy, hypernatremia, Plan of Treatment: resume all your medications and follow-up with your doctor within a week. Assessment: See above
[2022-01-09 07:23] LABS: Glucose, Whole Blood 117 mg/dL (60-115)
[2022-01-09 07:53] VITALS: BP 116/65; PULSE 62; RESP 18; TEMP 36.2; O2SAT 96
[2022-01-09] MEDS: FLUoxetine HCl 10 MG CAPSULE PO (09:18)
[2022-01-09] MEDS: Furosemide 40 MG TABLET PO (09:18)
[2022-01-09] MEDS: amLODIPine Besylate 10 MG TABLET PO (09:18)
[2022-01-09] MEDS: Atorvastatin Calcium 80 MG TABLET PO (09:18)
[2022-01-09] MEDS: Multivitamin TABLET 1 TAB PO (09:18)
[2022-01-09] MEDS: traZODone HCL 50 MG TABLET 12.5 MG PO (09:18)
[2022-01-09] MEDS: allopurinoL 100 MG TABLET PO (09:19)
[2022-01-09] MEDS: Divalproex Sodium Sprinkles 125 MG CAP.DR.SPR 625 MG PO (09:19)
[2022-01-09] MEDS: Apixaban 5 MG TABLET PO (09:19)
--- NOTE | 2022-01-09 09:29 | MHC.CM.PN ---
PT WAS SCHEDULED TO RETURN TO [facility] THIS MORNING AT 0900, HOWEVER DUE TO AMBULANCE DELAYS, PT IS NOW SCHEDULED TO TRANSPORT AT 1200 HOURS. [facility] NOTIFIED VIA [employer]. PTS SON NOTIFIED YESTERDAY VIA T/C
== END 2022-01-09 14:31 | disposition skilled nursing facility (03) | DRG 177 ==
LOC: HO.ED 16:33 → HO.EDOVER 17:40 → HO.IMC 01-07 07:29
PROVIDERS: Emergency Medicine; Internal Medicine; Admitting Provider Internal Medicine; Emergency Provider Emergency Medicine; PCP Internal Medicine; Visit Provider Internal Medicine
DX: U07.1 COVID-19 (principal); G93.41 Metabolic encephalopathy; A08.39 Other viral enteritis; E87.0 Hyperosmolality and hypernatremia; G81.94 Hemiplegia, unspecified affecting left nondominant side; I48.20 Chronic atrial fibrillation, unspecified; E86.0 Dehydration; T38.0X5A Adverse effect of glucocorticoids and synthetic analogues, initial encounter; D72.829 Elevated white blood cell count, unspecified; D75.1 Secondary polycythemia; F03.90 Unspecified dementia, unspecified severity, without behavioral disturbance, psychotic disturbance, mood disturbance, and anxiety; I69.321 Dysphasia following cerebral infarction; E78.5 Hyperlipidemia, unspecified; Z79.01 Long term (current) use of anticoagulants; Z79.899 Other long term (current) drug therapy
CPT/HCPCS: 36415; 70450; 71045; 71046; 80048; 80061; 80076; 82550; 82947; 83605; 84484; 85025; 85027; 85610; 85730; 87040; 87147; 87205; 87493; 87635; 92610; 93005; 96361; 96365; 97116; 97162; 97167; 97530; 99285; J0248; J1100; J1956; J2543

== ENCOUNTER 2022-07-24 18:55 | Emergency (ER) | payer OTHER, SELFPAY ==
--- NOTE | ~2022-07-24 | CT_ITS ---
Indication: Fall, pain EXAMINATION: CT brain, CT cervical spine. Axial imaging with coronal and sagittal reformatted images. This CT examination was performed using dose optimization techniques as appropriate, variously including the following: *Automated exposure control *Adjustment of mA and/or kV according to patient size (this includes techniques or standardized protocols for targeted exams where dose is matched to indication/reason for exam; i.e. extremities or head) *Use of iterative reconstruction technique. Radiation dose 1112. CT brain; Comparison is made to previous exam dated 01/03/2022. There is no midline shift. There is no mass effect. There is no hemorrhage. The basal cisterns appear patent. The posterior fossa is grossly within normal limits. Atrophy and white matter ischemic changes are noted. No fracture is seen on the bone windows. CT cervical spine; Motion limits the exam. No acute fracture or dislocation. Degenerative changes are noted. Calcification in the superior mediastinum of uncertain etiology. CT/CT cervical spine wo IV con IMPRESSION: Negative acute noncontrast CT the brain. Atrophy and white matter ischemic changes. No fracture or dislocation of the cervical spine.
--- NOTE | ~2022-07-24 | CT_ITS ---
Indication: Fall, pain EXAMINATION: CT brain, CT cervical spine. Axial imaging with coronal and sagittal reformatted images. This CT examination was performed using dose optimization techniques as appropriate, variously including the following: *Automated exposure control *Adjustment of mA and/or kV according to patient size (this includes techniques or standardized protocols for targeted exams where dose is matched to indication/reason for exam; i.e. extremities or head) *Use of iterative reconstruction technique. Radiation dose 1112. CT brain; Comparison is made to previous exam dated 01/03/2022. There is no midline shift. There is no mass effect. There is no hemorrhage. The basal cisterns appear patent. The posterior fossa is grossly within normal limits. Atrophy and white matter ischemic changes are noted. No fracture is seen on the bone windows. CT cervical spine; Motion limits the exam. No acute fracture or dislocation. Degenerative changes are noted. Calcification in the superior mediastinum of uncertain etiology. CT/CT head/brain wo IV con IMPRESSION: Negative acute noncontrast CT the brain. Atrophy and white matter ischemic changes. No fracture or dislocation of the cervical spine.
--- NOTE | 2022-07-24 19:11 | ED_ITS ---
HPI - Fall General Chief Complaint: Fall Stated Complaint: Fall (w/ head strike) per EMS Time Seen by Provider: 07/24/22 19:11 Source: patient Mode of arrival: EMS Limitations: no limitations History of Present Illness HPI Narrative: patient from group of on Eliquis for chronic AFib was walking to the bathroom tripped and fell hitting his head to the floor no loss of consciousness no seizures no other injuries patient denies any dizziness no loss of consciousness Related Data Home Medications Medication Instructions Recorded Confirmed allopurinol 100 mg tablet 100 mg PO DAILY 01/03/22 01/03/22 amlodipine 10 mg tablet 10 mg PO DAILY 01/03/22 01/03/22 apixaban 5 mg tablet (Eliquis) 5 mg PO BID 01/03/22 01/03/22 atorvastatin 80 mg tablet 80 mg PO BEDTIME 01/03/22 01/03/22 diclofenac sodium 1 % topical gel 4 g topical BID PRN Pain 01/03/22 01/03/22 divalproex 125 mg tablet,delayed 625 mg PO BID 01/03/22 01/03/22 release (Depakote) docusate sodium 100 mg capsule 100 mg PO BID PRN Constipation 01/03/22 01/03/22 (Colace) fluoxetine 10 mg capsule 10 mg PO DAILY 01/03/22 01/03/22 furosemide 40 mg tablet (Lasix) 40 mg PO DAILY 01/03/22 01/03/22 [id number] C-Mn 500 1 cap PO DAILY 01/03/22 01/03/22 mg-400 mg capsule (Glucosamine Chondroitin Maximum Strength) lisinopril 5 mg tablet 5 mg PO BEDTIME 01/03/22 01/03/22 multivitamin 1 tab PO DAILY 01/03/22 01/03/22 trazodone 50 mg tablet 12.5 mg PO BID 01/03/22 01/03/22 Allergies Allergy/AdvReac Type Severity Reaction Status Date / Time No Known Allergies Allergy Verified 01/03/22 16:13 Review of Systems Review of Systems: Yes all other systems are reviewed and are negative [facility] Past Medical History Medical History Chronic a-fib Dementia History of stroke HLD (hyperlipidemia) Social History Social History Household Members: Other Household Members Other:: [facility] Housing: [facility] Unable to assess alcohol history related to: Unknown Alcohol intake: never Patient Tobacco Use Status: Tobacco use Unknown Smoked in Last 30 Days: No Use of substances other than those prescribed or required for medical reasons: No Advance Directives: No Advance Directives Information Provided: No service: No Current occupational status: disabled Physical Exam Vital Signs: Vital Signs: Last Vital Signs Pulse 83 07/24/22 20:27 Resp 16 07/24/22 20:27 BP 162/80 H 07/24/22 20:27 Pulse Ox 98 07/24/22 20:27 O2 Del Method 07/24/22 20:27 BMI result Body Mass Index 34.6 Appearance: Alert. Oriented X3. No acute distress. Eyes: PERRLA, No Nystagmus HEENT: Pharynx normal. Oral Mucosa moist soft tissue swelling left temporoparietal area Neck: Normal inspection. Neck supple. no midline tenderness CVS: Normal heart rate and rhythm. Pulses normal. Respiratory: No respiratory distress. Equal air entry bilateral, no wheezing/rales/rhonchi Abdomen: Soft and nontender. Bowel sounds are present, no mass palpable, no CVA tenderness Skin: Skin warm and dry. Normal skin color. Normal skin turgor. Extremities: No lower extremity edema. No calf tenderness Neuro: Oriented X 3. No motor deficit. No sensory deficit.No cerebellar signs , cranial nerves II-XII intact Medical Decision Making Medical Decision Making MDM Narrative: patient status post mechanical fall CT scan of the C-spine and head negative for any acute discharge patient back to halfway no other signs of injury noticed patient is at his baseline Discharge Plan Discharge Clinical Impression: Minor closed head injury, Fall Patient Disposition: Xfer SNF Transfer Details: patient's CT scan of the head and cervical spine negative for any acute Additional Instructions: care and cautions as advised Prescriptions: No [facility] multivitamin Tablet 1 tab PO DAILY furosemide [Lasix] 40 mg Tablet 40 mg PO DAILY atorvastatin 80 mg Tablet 80 mg PO BEDTIME trazodone 50 mg Tablet 12.5 mg PO BID allopurinol 100 mg Tablet 100 mg PO DAILY amlodipine 10 mg Tablet 10 mg PO DAILY divalproex [Depakote] 125 mg Tablet,Delayed Release (Dr/Ec) 625 mg PO BID fluoxetine 10 mg Capsule 10 mg PO DAILY docusate sodium [Colace] 100 mg Capsule 100 mg PO BID PRN (Reason: Constipation) lisinopril 5 mg Tablet 5 mg PO BEDTIME [id number]-[id number] C-Mn [Glucosamine Chondroitin MaxStr] 500-400 mg Capsule 1 cap PO DAILY diclofenac sodium 1 % Gel 4 g TOPICAL BID PRN (Reason: Pain) Rx Instructions: APPLY TO AFFECTED JOINTS Eliquis 5 mg Tablet 5 mg PO BID
[2022-07-24 20:00] VITALS: BP 159/75; BP 162/80; PULSE 81; PULSE 83; RESP 18; O2SAT 97; O2SAT 98; BMI 34.6
[2022-07-24 20:23] VITALS: BP 162/80; PULSE 83; RESP 16
--- NOTE | 2022-07-24 20:25 | PC.NURSE ---
pt fell at SNF while walking to bathroom, struck head L side hematoma, states he tripped and fell; now experiencing dizziness after fall, denies pain, cannot recall how long he was down pt is on blood thinners- eliquis confused at baseline h/o afib, anxiety, htn, hyperlipidemia, audio hallucinations
[2022-07-24 20:27] VITALS: BP 162/80; PULSE 83; RESP 16; O2SAT 98
--- NOTE | 2022-07-24 21:52 | PC.NURSE ---
[id number] report given to [facility]
[2022-07-24 22:38] VITALS: BP 158/89; PULSE 85; RESP 16; TEMP 36.8; O2SAT 98
--- NOTE | 2022-07-24 22:43 | PC.NURSE ---
[facility] transporting pt to [facility] via stretcher
== END 2022-07-24 22:32 | disposition skilled nursing facility (03) ==
PROVIDERS: Emergency Provider Internal Medicine
DX: S09.90XA Unspecified injury of head, initial encounter (principal); W01.0XXA Fall on same level from slipping, tripping and stumbling without subsequent striking against object, initial encounter; I48.20 Chronic atrial fibrillation, unspecified; I10 Essential (primary) hypertension; Z79.01 Long term (current) use of anticoagulants; Z79.02 Long term (current) use of antithrombotics/antiplatelets; Z79.899 Other long term (current) drug therapy; Y93.9 Activity, unspecified; Y92.129 Unspecified place in nursing home as the place of occurrence of the external cause; Y99.9 Unspecified external cause status
CPT/HCPCS: 70450; 72125; 99284

== ENCOUNTER 2024-12-30 01:59 | Emergency (ER) | payer OTHER, SELFPAY ==
--- NOTE | ~2024-12-30 | XR_ITS ---
CLINICAL HISTORY: cough 1 view chest x-ray Comparison: CR/SR - XR CHEST 2V - 01/05/22 13:42 EDT Findings: Minor atelectasis right lower lung. No consolidation or effusion. Heart size is normal. No acute fracture. IMPRESSION: No consolidation. This document has been electronically signed by: Aiyana Hilliard MD on 12/30/2024 04:34:17
[2024-12-30 02:08] VITALS: BP 140/90; PULSE 108; O2SAT 91
[2024-12-30 02:09] VITALS: BP 128/86; PULSE 91; RESP 20; TEMP 37.4; O2SAT 93; BMI 29.5
[2024-12-30 02:22] VITALS: BP 128/86; PULSE 91; RESP 15; TEMP 37.4; O2SAT 94
[2024-12-30 02:31] LABS: Hematocrit 53.3 % (42.0-52.0); Hemoglobin 18.7 g/dl (14.0-18.0); Imm Gran Abs Auto 0.04 X10*3/uL (0.00-0.03); Imm Gran Pct Auto 0.3 % (0.0-0.4); Lymphocytes Absolute Auto 1.9 X10*3/uL (1.2-4.9); MANUAL DIFF FLAG SCAN; Mean Corpuscular HGB Conc 35.1 g/dl (31.0-36.0); Mean Corpuscular Hemoglobin 30.6 pg (27.0-33.0); Mean Corpuscular Volume 87.2 fL (80.0-98.0); NRBC Abs Auto 0.000 X10*3/uL (0.0-0.012); NRBC Pct Auto 0.0 /100WBC (0.0-0.2); Platelet Count 202 X10*3/uL (160-400); Red Blood Count 6.11 X10*6/uL (4.60-5.80); SCAN SMEAR FLAG 1; White Blood Count 11.8 X10*3/uL (4.8-10.8)
[2024-12-30 02:44] LABS: Alanine Aminotransferase 34 U/L (0-40); Albumin Level 3.7 g/dL (3.5-5.0); Alkaline Phosphatase 79 U/L (39-117); Anion Gap 15 (12-20); Aspartate Amino Transferase 49 U/L (5-37); Blood Urea Nitrogen 26 mg/dL (9-16); Calcium 9.0 mg/dL (8.4-10.2); Carbon Dioxide 26 mmol/L (22-29); Chloride 109 mmol/L (96-108); Creatinine Clr Calc Pharmacy 84.0; Estimated Glomerular Filt Rate > 60; Magnesium 2.1 mg/dL (1.6-2.6); Potassium 3.9 mmol/L (3.3-5.1); Sodium 146 mmol/L (135-145); Total Protein 7.4 g/dL (6.5-8.0)
--- NOTE | 2024-12-30 03:00 | ED.GENADULT ---
HPI - General Adult General Chief complaint: Weakness Stated complaint: declining condition [facility] Time Seen by Provider: 12/30/24 02:19 Source: patient Limitations: other (Advanced dementia) History of Present Illness ED Provider: Hailey Anglin PA-C HPI narrative: 64-year-old male with a history of advanced dementia with severe behavioral outbursts consisting of aggression, hypertension, gout, hyperlipidemia, who presents from [facility] with failure to thrive. Patient was diagnosed with COVID recently, over the past 2 days, he has become progressively weak, with associated poor oral intake. Patient does not want to get out of bed. Per staff, the patient typically ambulates independently, and is alert and oriented to self and place. History limited as patient not wanting to engage in conversation. Related Data Home Medications ?Medication ?Instructions ?Recorded ?Confirmed allopurinol 100 mg tablet 100 mg PO DAILY 01/03/22 01/03/22 amlodipine 10 mg tablet 10 mg PO DAILY 01/03/22 01/03/22 apixaban 5 mg tablet (Eliquis) 5 mg PO BID 01/03/22 01/03/22 atorvastatin 80 mg tablet 80 mg PO BEDTIME 01/03/22 01/03/22 diclofenac sodium 1 % topical gel 4 g topical BID PRN Pain 01/03/22 01/03/22 divalproex 125 mg tablet,delayed 625 mg PO BID 01/03/22 01/03/22 release (Depakote) docusate sodium 100 mg capsule 100 mg PO BID PRN Constipation 01/03/22 01/03/22 (Colace) fluoxetine 10 mg capsule 10 mg PO DAILY 01/03/22 01/03/22 furosemide 40 mg tablet (Lasix) 40 mg PO DAILY 01/03/22 01/03/22 vgnmlmfzpal-vpvkbideb-rrd C-Mn 500 1 cap PO DAILY 01/03/22 01/03/22 mg-400 mg capsule (Glucosamine Chondroitin Maximum Strength) lisinopril 5 mg tablet 5 mg PO BEDTIME 01/03/22 01/03/22 multivitamin 1 tab PO DAILY 01/03/22 01/03/22 trazodone 50 mg tablet 12.5 mg PO BID 01/03/22 01/03/22 Allergies Allergy/AdvReac Type Severity Reaction Status Date / Time No Known Allergies Allergy Verified 12/30/24 02:16 [facility], [facility] Past Medical History Medical History Chronic a-fib Dementia History of stroke HLD (hyperlipidemia) Social History Social History Household Members: Other Household Members Other:: [facility] Housing: Prison Unable to assess alcohol history related to: Unknown Alcohol intake: never Patient Tobacco Use Status: Tobacco use Unknown Smoked in Last 30 Days: No Use of substances other than those prescribed or required for medical reasons: No Advance Directives: No Advance Directives Information Provided: Yes service: No Current occupational status: disabled Physical Exam ED Vital Signs: Vital Signs - 24 hr 12/30/24 02:09 12/30/24 02:22 12/30/24 04:00 Temperature 99.3 F 99.3 F 98.8 F Pulse Rate 91 91 88 Respiratory Rate 20 15 19 Blood Pressure 128/86 128/86 111/77 Pulse Oximetry 93 94 94 Oxygen Delivery Method Room Air Room Air Room Air BMI result Body Mass Index 29.5 Medications Administered Discontinued Medications Generic Name Dose Route Start Last Admin Trade Name Freq PRN Reason Stop Dose Admin Lactated Ringer's 1,000 mls @ 999 mls/hr 12/30/24 03:15 12/30/24 04:17 Lr IV 12/30/24 04:15 Infused .Q1H1M GLADIS Infusion Medical Decision Making Medical Decision Making MDM Narrative: 64-year-old male with a history of advanced dementia with severe behavioral outbursts consisting of aggression, hypertension, gout, hyperlipidemia, who presents from [facility] with failure to thrive. Patient was diagnosed with COVID recently, over the past 2 days, he has become progressively weak, with associated poor oral intake. Patient does not want to get out of bed. Per staff, the patient typically ambulates independently, and is alert and oriented to self and place. History limited as patient not wanting to engage in conversation. Problem: Advanced dementia History: Per EMS and residential report I have considered the following differential diagnoses: Viral syndrome, dehydration, anemia, electrolyte abnormality, progressive dementia Plan: We will screen basic labs chest x-ray viral panel and UA. He may be clinically dehydrated with underlying electrolyte abnormalities. I have independently reviewed the following tests: Labs: Slight leukocytosis noted, the patient is hemoconcentrated, hypernatremia noted, creatinine 0.97 no additional electrolyte abnormality, COVID positive Chest x-ray: No pulmonary edema no pleural effusion no obvious pneumonia, maybe patchy viral pattern when compared to prior studies Lab Data 12/30/24 02:24 12/30/24 02:24 Labs: Lab Results 12/30/24 Range/Units 02:24 WBC 11.8 H (4.8-10.8) X10*3/uL RBC 6.11 H D (4.60-5.80) X10*6/uL Hgb 18.7 H D (14.0-18.0) g/dl Hct 53.3 H D (42.0-52.0) % MCV 87.2 (80.0-98.0) fL MCH 30.6 (27.0-33.0) pg MCHC 35.1 (31.0-36.0) g/dl RDW 13.6 (11.0-16.0) % Plt Count 202 (160-400) X10*3/uL MPV 11.3 (9.4-12.4) fL Immature Gran % (Auto) 0.3 (0.0-0.4) % Neut % (Auto) 69.8 (45-73) % Lymph % (Auto) 16.4 L (20-40) % [place] % (Auto) 13.0 H (2-11) % Eos % (Auto) 0.1 (0-4) % Baso % (Auto) 0.4 (0-2) % Lymph # (Auto) 1.9 (1.2-4.9) X10*3/uL [place] # (Auto) 1.5 H (0.1-1.2) X10*3/uL Eos # (Auto) 0.0 (0.0-0.4) X10*3/uL Baso # (Auto) 0.1 (0.0-0.2) X10*3/uL Abs Immat Gran (auto) 0.04 H (0.00-0.03) X10*3/uL Absolute Neuts (auto) 8.2 (2.0-8.3) x10*3/uL Absolute Nucleated RBC 0.000 (0.0-0.012) X10*3/uL Nucleated RBC % (auto) 0.0 (0.0-0.2) /100WBC Smear Tech's Comments VERIFIED Sodium 146 H (135-145) mmol/L Potassium 3.9 (3.3-5.1) mmol/L Chloride 109 H (96-108) mmol/L Carbon Dioxide 26 (22-29) mmol/L Anion Gap 15 (12-20) BUN 26 H (9-16) mg/dL Creatinine 0.97 (0.5-1.4) mg/dL Estim Creat Clear Calc 84.0 Estimated GFR > 60 Random Glucose 118 H (60-115) mg/dL Calcium 9.0 D (8.4-10.2) mg/dL Magnesium 2.1 (1.6-2.6) mg/dL Total Bilirubin 1.0 (0.0-1.0) mg/dL AST 49 H (5-37) U/L ALT 34 (0-40) U/L Alkaline Phosphatase 79 (39-117) U/L Total Protein 7.4 (6.5-8.0) g/dL Albumin 3.7 (3.5-5.0) g/dL Influenza Type A (PCR) NEGATIVE (Negative) Influenza Type B (PCR) NEGATIVE (Negative) RSV RNA Qual (PCR) NEGATIVE (Negative) SARS-CoV-2 RNA (RT-PCR) POSITIVE A (Negative) Discharge Plan Discharge Clinical Impression: Dehydration, COVID-19, Adult failure to thrive Patient Disposition: Home, Self-Care Instructions: Dehydration (ED), COVID-19 (Coronavirus Disease 2019) (ED) Additional Instructions: The patient was subtly dehydrated, he received IV fluid therapy. He had no other lab abnormalities. His kidney function was normal. The chest x-ray was clear. He can follow up with primary care as needed. Prescriptions: No Action multivitamin Tablet 1 tab PO DAILY furosemide [Lasix] 40 mg Tablet 40 mg PO DAILY atorvastatin 80 mg Tablet 80 mg PO BEDTIME trazodone 50 mg Tablet 12.5 mg PO BID allopurinol 100 mg Tablet 100 mg PO DAILY amlodipine 10 mg Tablet 10 mg PO DAILY divalproex [Depakote] 125 mg Tablet,Delayed Release (Dr/Ec) 625 mg PO BID fluoxetine 10 mg Capsule 10 mg PO DAILY docusate sodium [Colace] 100 mg Capsule 100 mg PO BID PRN (Reason: Constipation) lisinopril 5 mg Tablet 5 mg PO BEDTIME jaeuuahdsaz-zlwulrfrf-oup C-Mn [Glucosamine Chondroitin MaxStr] 500-400 mg Capsule 1 cap PO DAILY diclofenac sodium 1 % Gel 4 g TOPICAL BID PRN (Reason: Pain) Rx Instructions: APPLY TO AFFECTED JOINTS Eliquis 5 mg Tablet 5 mg PO BID Print Language: Unknown
[2024-12-30 03:07] LABS: Resp Syncy Virus RNA Qual PCR NEGATIVE (Negative); SARS COV2 PCR INHOUSE POSITIVE (Negative)
[2024-12-30] MEDS: Lactated Ringers 1,000 ML 999 ML IV (03:15)
[2024-12-30 04:00] VITALS: BP 111/77; PULSE 88; RESP 19; TEMP 37.1; O2SAT 94
[2024-12-30 06:00] VITALS: BP 112/77; PULSE 78; RESP 16; TEMP 37.1; O2SAT 95
--- NOTE | 2024-12-30 06:43 | PC.NURSE ---
attempted to call nurse to nurse report to pts facility. Transferred but no answer from RN at facility.
[2024-12-30 06:45] VITALS: BP 112/77; PULSE 78; RESP 16; TEMP 37.1; O2SAT 95
== END 2024-12-30 06:47 ==
PROVIDERS: Physician Assistant Medical; Emergency Provider Emergency Medicine
DX: U07.1 COVID-19 (principal); E86.0 Dehydration; R62.7 Adult failure to thrive; R05.9 Cough, unspecified; R11.0 Nausea; Z68.29 Body mass index [BMI] 29.0-29.9, adult; Z79.899 Other long term (current) drug therapy
CPT/HCPCS: 71045; 80053; 83735; 85025; 87637; 96360; 99284; J7120

== ENCOUNTER → 2024-12-30 02:19 | Outpatient (BNV) | payer OTHER, SELFPAY | PROVIDERS: Emergency Provider Emergency Medicine; Visit Provider Radiology Diagnostic Radiology | DX: R05.9 Cough, unspecified (principal) | CPT/HCPCS: 71045 ==

== ENCOUNTER 2025-01-03 13:48 | Emergency (ER) | payer OTHER, SELFPAY ==
--- NOTE | 2025-01-03 14:18 | PC.RT ---
RT x2 called for EMS bringing in pt, CC SATs in the 60's on 10L O2. Upon EMS arrival, EMS was bag ventilating pt. RT 1 took over bagging upon pt transfer to ED bed. While RN and tech were placing leads on pt, staff noticed mottling to legs, monitor reading asystole no pulse detected. RT 2, RN and tech attempted to find pulse, no pulse noted. RT 2 began CPR and mary blue was called. ACLS level care was provided. Pt was intubated on first attempt by MD, 7.5 ETT 26cm @lips. ETT confirmed w/ colormetric CO2 change, condensation in tube, and bilateral chest rise. RT 1 bag ventilated pt until CPR and ACLS efforts were ceased by MD order. ETT remains in place at this time. TOD called.
--- NOTE | 2025-01-03 14:22 | MHC.EDTECH ---
CALLED ME OFFICE PER AT 1416 AND SPOKE TO SAGRARIO.
--- NOTE | 2025-01-03 14:26 | ED.CPR ---
HPI - CPR General Chief Complaint: Respiratory Arrest Stated Complaint: RESPIRATORY ARREST Source: EMS and old records reviewed Mode of arrival: EMS Limitations: other (ongoing CPR) History of Present Illness ED Provider: AMADO WILSON narrative: 64 yo male with PMH of CHF, dementia, afib, CHF who was seen here on 12/30 dx with FTT and COVID per EMS they were told he was okay and himself this AM. They then called 911 for AMS he was last seen okay this AM. They found him mottled unresponsive and sats in the 40s. The patinet was bagged en route. On arrival RN noted no response to any stimuli, no pulse and asystole on the monitor. As soon as he was on our stretcher we started CPR patient did not come with a MOLST we called son who confirmed full CODE. He had approx 20 min of CPR with intubation, multiple rounds of epi, IO, blood sugar was 155, 2 rounds of HCO3 no response on arrival did not come with a MOLST and we had to confirm his code status with son. 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) Place: NH/SNF Bystander CPR performed: No AED applied by bystander/notched blade loader: No Shock advised: No Initial findings in the field: unresponsive and agonal ROSC in the field: No Associated injuries: No Treatments prior to arrival: BMV Related Data Home Medications ?Medication ?Instructions ?Recorded ?Confirmed allopurinol 100 mg tablet 100 mg PO DAILY 01/03/22 01/03/22 amlodipine 10 mg tablet 10 mg PO DAILY 01/03/22 01/03/22 apixaban 5 mg tablet (Eliquis) 5 mg PO BID 01/03/22 01/03/22 atorvastatin 80 mg tablet 80 mg PO BEDTIME 01/03/22 01/03/22 diclofenac sodium 1 % topical gel 4 g topical BID PRN Pain 01/03/22 01/03/22 divalproex 125 mg tablet,delayed 625 mg PO BID 01/03/22 01/03/22 release (Depakote) docusate sodium 100 mg capsule 100 mg PO BID PRN Constipation 01/03/22 01/03/22 (Colace) fluoxetine 10 mg capsule 10 mg PO DAILY 01/03/22 01/03/22 furosemide 40 mg tablet (Lasix) 40 mg PO DAILY 01/03/22 01/03/22 wwrubihwlad-mlyxhrewz-vdx C-Mn 500 1 cap PO DAILY 01/03/22 01/03/22 mg-400 mg capsule (Glucosamine Chondroitin Maximum Strength) lisinopril 5 mg tablet 5 mg PO BEDTIME 01/03/22 01/03/22 multivitamin 1 tab PO DAILY 01/03/22 01/03/22 trazodone 50 mg tablet 12.5 mg PO BID 01/03/22 01/03/22 Allergies Allergy/AdvReac Type Severity Reaction Status Date / Time No Known Allergies Allergy Verified 12/30/24 02:16 Review of Systems Review of Systems: ROS unable to be obtained due to ongoing CPR [facility] Past Medical History Source: old records reviewed Medical History Chronic a-fib History of stroke HLD (hyperlipidemia) Dementia Social History Social History Household Members: Other Household Members Other:: [facility] Housing: Residential Unable to assess alcohol history related to: Unknown Alcohol intake: never Patient Tobacco Use Status: Tobacco use Unknown service: No Current occupational status: disabled Physical Exam Vital Signs: Vital Signs: BMI result Body Mass Index 25.9 Appearance: on arrival to room being bagged mottled, unresponsive RN noted no pulses and CPR started Eyes: Pupils 4mm unreactive ENT: Pharynx dusky and blue Neck: Normal inspection. Neck supple. CVS: absent heart sounds and no pulses Respiratory: no resp effort on arrival is being bagged. Abdomen: Soft and nontender. Skin: Skin cold and mottled Extremities: No lower extremity edema. fingers and toes arms/leg mottled and cold Neuro: unresponsive no response to painful stimuli Course Course Course Narrative: declined by [place] Reevaluation(s) Reevaluation #1: no cardiac activity on exam, pupils 4mm nonreactive, no corneal or gag reflex, no pulses after 20 min of high quality CPR and rounds of epi remained in asystole and PE. absent heart sounds as well. further resuscitative efforts deemed futile, time of 1409. Will notify next of kin son Serafin who is en route to hospital. Medical Decision Making Medical Decision Making MDM Narrative: 64 yo male with PMH of CHF, dementia, afib, CHF who was seen here on 12/30 dx with FTT and COVID now here with mottled appearance and hypoxic needing to be bagged by EMS - he just was diagnosed with COVID - but already on eliquis I do not feel that he should get TNK based off sig chance of bleeding. He was mottled on arrival and hypoxic, asystole on arrival unclear when pulses lost. At this time will perform high quality CPR and attempt resuscitation. Will keep son updated with progress. Differential Diagnosis Differential Diagnoses: The differential diagnosis associated with the presentation includes respiratory arrest, VTE but on eliquis, [place] Admission/Observation Consideration of admission/observation: Escalation of care including admission/observation considered after CPR efforts Lab Data MDM Lab Attestation statement: I reviewed the patient's lab results. BS 155 Independent Interpretation I performed an independent interpretation of an: Rhythm Strip (asystole) Independent Historian Clinical information obtained from an independent historian. History obtained from or confirmed by: EMS and Other (son) External Record Review External record reviewed: Inpatient record and Outpatient record Procedures Procedure Narrative Procedure Narrative: limited bedside US no FF, normal lung sliding, no cardiac movement 1409 no cardiac activity on US Intubation Intubation Type:: Endotracheal Tube Insertion Intubation Date:: 01/03/25 Time out performed: Yes sedative: none Laryngoscope: fiber optic video scope ET Tube Size: 7.5 ET Tube Uncuffed: Yes Tube Secured Depth (cm): 24 Tube Secured Location: teeth Tube Placement Confirmation: visualized tube passing through cords, equal breath sounds bilaterally, no breath sounds over epigastrium and confirmation by capnometry Patient Tolerated Procedure: well and no complications Intubation Complications: none Critical Care Time Critical Care Time Critical Care Time: Yes Total Critical Care Time: 35 Attestation: Time is exclusive of separately billable procedures. Time includes: direct patient care, patient reassessment, coordination of patient care, interpretation of data ( pulse oximetry, review of patient's medical records, discussion with family and ME, and documentation of patient care. Procedures excluded from critical care time: I attest to this time spent taking care of the patient Discharge Plan Discharge Clinical Impression: Respiratory arrest Patient Disposition:
[2025-01-03 14:31] VITALS: BMI 25.9
--- NOTE | 2025-01-03 14:41 | PC.NURSE ---
organ bank called [phone]. spoke with lazara. organ bank declines case.
--- OUTSIDE RECORDS SUMMARY | 2025-01-03 15:49 | XMS_ITS | Clinical Summary ---
Author Organization [facility] Facility Address [address] [place] [id number] Care Team Providers Care Software Development Advisor Name Role Phone Unavailable Primary Care Provider Unavailabl e Social History Tobacco Use Types Packs/Day Years Used Date Smoking Tobacco: Never Assessed Sex and Gender Information Value Date Recorded Sex Assigned at Not on file Legal Sex Male 7:57 AM EDT Gender Identity Not on file Sexual Orientation Not on file Plan of Treatment Health Maintenance Due Date Last Done Comments Colorectal Cancer Screening: Annual FOBT 2010 Colorectal Cancer Screening: Colonoscopy 2010 Colorectal Cancer Screening: Sigmoidoscopy 2010 Pneumococcal Vaccine: 50+ Ye ars (1 of 1 - PCV) 2011 Influenza Vaccine (#1) 2025 Hepatitis B Vaccine Aged Out No longe r eligible based on patient's age to complete this topic Insurance [facility]
--- OUTSIDE RECORDS SUMMARY | 2025-01-03 15:49 | XMS_ITS | Encounter Summary ---
Author Organization [facility] Address [address] [place] [address] Care Team Providers Care Human Resources Services Specialist Name Role Phone Mason Restrepo MD Primary Care Provider Encounter Details Date Type Department Care Team (Late st Contact Info) Description 09/08/2024 Lab Requisition [facility] - Main Lab [address] [place] [address] Mason Restrepo MD [address], [place] [id number] Weakness; Major depressive disorder, single episode, unspecified Social History Tobacco Use Types Packs/Day Years Used Date Smoking Tobacco: Never Assessed Sex and Gender Information Value Date Recorded Sex Assigned at Not on file Legal Sex Male 8:53 PM EST Gender Identity Not on file Sexual Orientation Not on file documented as of this encounter Plan of Treatment Not on file documented as of this encounter Procedures Procedure Name Priority Date/Time Associated Diagnosis Comments THYROID STIMULATING HORMONE WITH REFLEX TO FREE T4 AND FREE T3 Routine 09/10/2024 4:46 AM EDT Weakness Major depressive disorder, single episode, unspecified VALPROIC ACID LEVEL, TOTAL Routine 09/10/2024 4:46 AM EDT Weakness Major depressive disorder, single episode, unspecified documented in this encounter Results * Valproic acid level, total (09/10/2024 4:46 AM EDT) Valproic Acid, Total 65 50 - 100 mcg/mL LAB CHEMISTRY METHOD 09/10/2024 12:12 PM EDT [facility] Blood Venous blood specimen / Unknown Venipuncture / Unknown 09/10/2024 4:46 AM EDT 09/10/2024 11:10 AM EDT Mason Restrepo MD LAB BLOOD ORDERABLES Final R esult Performing Organization Address City/[facility]/ZIP Co de Phone Number [facility] [address] [place] [address], [place] [phone] * Thyroid stimulating hormone with reflex to free t4 and free t3 (09/10/2024 4:46 AM EDT) TSH 0.80 0.40 - 4.00 mcIU/mL LAB CHEMISTRY METHOD 09/10/2024 1:29 PM EDT [facility] Blood Venous blood specimen / Unknown Venipuncture / Unknown 09/10/2024 4:46 AM EDT 09/10/2024 11:10 AM EDT Mason Restrepo MD LAB BLOOD ORDERABLES Final R esult Performing Organization Address City/[facility] Co de Phone Number [facility] [address] [place] [address], [place] [phone] documented in this encounter Visit Diagnoses Diagnosis Weakness Other malaise and fatigue Major depressive disorder, single episode, unspecified documented in this encounter Care Teams Human Resources Services Specialist Relationship Specialty Start Date End Date Mason Restrepo MD [address] [place] [id number] PCP - General Family Medicine 09/08/24 documented as of this encounter
[2025-01-04 08:58] LABS: Glucose, Whole Blood 155 mg/dL (60-115)
== END 2025-01-03 19:27 | disposition expired ==
LOC: HO.ED 15:04
PROVIDERS: Emergency Provider Emergency Medicine
DX: R09.2 Respiratory arrest (principal); U07.1 COVID-19; I50.9 Heart failure, unspecified; I48.91 Unspecified atrial fibrillation; R40.4 Transient alteration of awareness; F03.90 Unspecified dementia, unspecified severity, without behavioral disturbance, psychotic disturbance, mood disturbance, and anxiety; Z79.899 Other long term (current) drug therapy
CPT/HCPCS: 82947; 96374; 96375; 99291; J0168